=== PATIENT | female | born 1950 | race American Indian/Alaskan Native ===

== ENCOUNTER 2017-04-18 09:12 | Emergency (ER) | payer MEDICARE ==
--- NOTE | 2017-04-18 10:16 | Emergency Department Report ---
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 As per farm or ranch animal caretaker and daughter at bedside, while they were moving the patient, the tube got caught and dislodged. Pt had a 22Fr feeding tube in place. G tube was first placed approximately 6 years ago, she has a mature tract. Otherwise no other complaints. Severity scale (0 -10): 0 - Related Data Home Medications Medication Instructions Recorded Confirmed Last Taken Carvedilol [Coreg] 25 mg FEEDTUBE BID 11/15/13 06/09/16 09/08/14 Insulin Detemir [Levemir Flexpen] 5 units SQ QPM 11/15/13 06/09/16 09/08/14 Levothyroxine [Synthroid] 25 mcg FEEDTUBE DAILY 11/15/13 06/09/16 09/08/14 Lisinopril [Zestril TAB] 20 mg FEEDTUBE DAILY 11/15/13 06/09/16 09/08/14 Mirtazapine [Remeron] 15 mg FEEDTUBE QPM 11/15/13 06/09/16 09/08/14 amLODIPine [Norvasc] 10 mg FEEDTUBE DAILY 11/15/13 06/09/16 09/08/14 Ferrous Sulfate [Ferrous Sulfate 7.5 ml FEEDTUBE BID 09/09/14 06/09/16 09/08/14 Oral Liq 220 Mg/5 Ml] Allergies Allergy/AdvReac Type Severity Reaction Status Date / Time enoxaparin sodium AdvReac Unknown Verified 11/12/15 17:01 [From Lovenox] ED Review of Systems ROS: Stated complaint: FEEDING TUBE DISLODGED Other details as noted in HPI Comment: All other systems reviewed and negative ED Past Medical Hx - Past Medical History Hx Hypertension: Yes Hx CVA: Yes (2010 WITH RIGHT SIDED DEFICITS) Hx Heart Attack/AMI: (CHF) Hx Congestive Heart Failure: Yes Hx Diabetes: Yes Hx Deep Vein Thrombosis: Yes Hx Arthritis: Yes Hx HIV: No Additional medical history: HYPOTHYROIDSIM, GI bleed - Surgical History Additional Surgical History: Partial colectomy, Rectal Surgery. G-tube - Social History Smoking Status: Never Smoker Substance Use Type: Alcohol - Medications Home Medications: Home Medications Medication Instructions Recorded Confirmed Last Taken Type Carvedilol [Coreg] 25 mg FEEDTUBE BID 11/15/13 06/09/16 09/08/14 History Insulin Detemir [Levemir Flexpen] 5 units SQ QPM 11/15/13 06/09/16 09/08/14 History Levothyroxine [Synthroid] 25 mcg FEEDTUBE DAILY 11/15/13 06/09/16 09/08/14 History Lisinopril [Zestril TAB] 20 mg FEEDTUBE DAILY 11/15/13 06/09/16 09/08/14 History Mirtazapine [Remeron] 15 mg FEEDTUBE QPM 11/15/13 06/09/16 09/08/14 History amLODIPine [Norvasc] 10 mg FEEDTUBE DAILY 11/15/13 06/09/16 09/08/14 History Ferrous Sulfate [Ferrous Sulfate 7.5 ml FEEDTUBE BID 09/09/14 06/09/16 09/08/14 History Oral Liq 220 Mg/5 Ml] ED Physical Exam - General Limitations: Physical Limitation General appearance: alert, in no apparent distress - Head Head exam: Present: atraumatic, normocephalic - Eye Eye exam: Present: normal appearance - ENT ENT exam: Present: mucous membranes moist - Neck Neck exam: Present: normal inspection - Respiratory Respiratory exam: Present: normal lung sounds bilaterally. Absent: respiratory distress - Cardiovascular Cardiovascular Exam: Present: regular rate, normal rhythm. Absent: systolic murmur, diastolic murmur, rubs, gallop - GI/Abdominal GI/Abdominal exam: Present: soft, normal bowel sounds, other (G tube stoma in middle of abdomen, open tract, no surrounding cellulitis). Absent: distended, tenderness, guarding, rebound, rigid - Extremities Exam Extremities exam: Present: normal inspection. Absent: pedal edema, joint swelling - Back Exam Back exam: Present: normal inspection - Neurological Exam Neurological exam: Present: alert, other (R sided hemiparesis, nonverbal. Pt is at her baseline) - Psychiatric Psychiatric exam: Present: normal affect, normal mood - Skin Skin exam: Present: warm, dry, intact, normal color. Absent: rash ED Course Vital Signs 04/18/17 04/18/17 09:31 10:06 Pulse Rate 62 Respiratory 14 16 Rate Blood Pressure 168/97 [Left] O2 Sat by Pulse 96 99 Oximetry ED Medical Decision Making - Radiology Data Radiology results: report reviewed KUB: G tube in satisfactory position - Medical Decision Making 24 FR Gtube placed with ease into established stoma, 10cc's of NS placed into balloon Critical care attestation.: If time is entered above; I have spent that time in minutes in the direct care of this critically ill patient, excluding procedure time. ED Disposition Clinical Impression: Gastrojejunostomy tube dislodgement Disposition: DISCHARGED TO HOME OR SELFCARE Is pt being admited?: No Condition: Stable Instructions: How to Use and Care for Your PEG Tube (ED) Referrals: JAMIA GLEZ MD [Primary Care Provider] - 3-5 Days
--- NOTE | 2017-04-18 11:08 | XRay Report ---
X-RAY G-TUBE STUDY: 04/18/17 10:43 CLINICAL: Assess position of the G-tube. COMPARISON: None. FINDINGS: A small volume of Gastroview was injected through the G-tube. Contrast is identified in the . No extravasation. IMPRESSION: Satisfactory position of the G-tube.
[2017-04-18 15:22] VITALS: BP 130/78
== END 2017-04-18 12:50 | disposition home or self-care (01) ==
LOC: ED 09:12
DX: Z43.1 Encounter for attention to gastrostomy (principal)
CPT/HCPCS: 74000; 99283; Q9963

== ENCOUNTER 2017-11-15 19:42 | Emergency (ER) | payer MEDICARE ==
--- NOTE | 2017-11-15 21:38 | Emergency Department Report ---
HPI - General Chief Complaint: Tube Replacement Time Seen by Provider: 11/15/17 20:52 - HPI HPI: Room 21 The patient is a 67-year-old female presenting with a chief complaint G-tube removal. Patient has a history of a G-tube and family states was pulled out approximately 17:00 today. Family presents to have G-tube replaced. 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 Location: Abdomen Duration: Constant since 17:00 Quality: [See above] Severity: [See above] Modifying factors: [see above] Context: [see above] Mode of transportation: [not driving] ED Past Medical Hx - Past Medical History Previous Medical History?: Yes Hx Hypertension: Yes Hx CVA: Yes (2011 WITH RIGHT SIDED DEFICITS) Hx Heart Attack/AMI: (CHF) Hx Congestive Heart Failure: Yes Hx Diabetes: Yes Hx Deep Vein Thrombosis: Yes Hx Arthritis: Yes Hx HIV: No Additional medical history: HYPOTHYROIDSIM, GI bleed - Surgical History Past Surgical History?: Yes Additional Surgical History: Partial colectomy (family does not know the indication), Rectal Surgery. G-tube - Social History Smoking Status: Never Smoker Substance Use Type: None - Medications Home Medications: Home Medications Medication Instructions Recorded Confirmed Last Taken Type Carvedilol [Coreg] 25 mg FEEDTUBE BID 11/15/13 06/09/16 09/08/14 History Insulin Detemir [Levemir Flexpen] 5 units SQ QPM 11/15/13 06/09/16 09/08/14 History Levothyroxine [Synthroid] 25 mcg FEEDTUBE DAILY 11/15/13 06/09/16 09/08/14 History Lisinopril [Zestril TAB] 20 mg FEEDTUBE DAILY 11/15/13 06/09/16 09/08/14 History Mirtazapine [Remeron] 15 mg FEEDTUBE QPM 11/15/13 06/09/16 09/08/14 History amLODIPine [Norvasc] 10 mg FEEDTUBE DAILY 11/15/13 06/09/16 09/08/14 History Ferrous Sulfate [Ferrous Sulfate 7.5 ml FEEDTUBE BID 09/09/14 06/09/16 09/08/14 History Oral Liq 220 Mg/5 Ml] ED Review of Systems ROS: Stated complaint: G-TUBE Other details as noted in HPI Comment: Unobtainable due to pts medical conditions Physical Exam - Physical Exam Vital Signs: Vital Signs 11/15/17 19:50 Temperature 98.3 F Pulse Rate 99 H Respiratory 20 Rate Blood Pressure 146/82 [Left] O2 Sat by Pulse 96 Oximetry Physical Exam: GENERAL: The patient is well-developed well-nourished female lying on stretcher not appearing to be in acute distress. [] HEENT: Normocephalic. Atraumatic. Extraocular motions are intact. Patient has moist mucous membranes. NECK: Trachea midline CHEST/LUNGS: Clear to auscultation. There is no respiratory distress noted. HEART/CARDIOVASCULAR: Regular. There is no tachycardia. There is no gallop rub or murmur. ABDOMEN: Abdomen is soft, nontender. Patient has normal bowel sounds. There is no abdominal distention. G-tube stoma present SKIN: G-tube stoma present NEURO: The patient is awake and alert. The patient is cooperative. Patient is aphasic from previous CVA MUSCULOSKELETAL: There is no evidence of acute injury. ED Course Vital Signs 11/15/17 19:50 Temperature 98.3 F Pulse Rate 99 H Respiratory 20 Rate Blood Pressure 146/82 [Left] O2 Sat by Pulse 96 Oximetry - Feeding Tube Replacement Reason for Replacement: pt. removed/pulled out Initial Tube Inserted: greater than 4 weeks Type of Tube: gastrostomy Use of Tube: medications and feeding Insertion Site Prior to Procedure: clean Tube Used for Reinsertion: other (22 Bruneian G-tube) Bruneian Tube Size (F): 22 Balloon Size (mls): 10 Verification of Placement: gastrograffin injection Patient Tolerated Procedure: well Complications: other (initially attempted to replace G-tube with 24 Bruneian however it would not pass. Subsequently a second attempt was made using a 22 Bruneian G-tube and was successful) ED Medical Decision Making - Radiology Data Radiology results: image reviewed (G-tube x-ray ) interpreted by me: G-tube [id number] seen in bowel lumen - Differential Diagnosis G-tube replacement Critical care attestation.: If time is entered above; I have spent that time in minutes in the direct care of this critically ill patient, excluding procedure time. ED Disposition Clinical Impression: Dislodged gastrostomy tube Disposition: DC- TO HOME OR SELFCARE Is pt being admited?: No Does the pt Need Aspirin: No Condition: Stable Instructions: Tube Feeding (ED) Additional Instructions: Return to the emergency department immediately should you develop worsening symptoms, fever, inability to tolerate food or liquid or any other concerns. Referrals: PRIMARY CARE, [Primary Care Provider] - 3-5 Days Time of Disposition: 21:43
[2017-11-15 22:04] VITALS: BP 143/85
--- NOTE | 2017-11-15 22:43 | XRay Report ---
FINAL REPORT PROCEDURE: XR G-TUBE STUDY TECHNIQUE: Abdominal x-rays performed with AP abdominal view pre and post G-tube contrast injection Two images submitted HISTORY: G-tube replacement COMPARISON: 06/09/2016 FINDINGS: Pre enteric tube injection study demonstrates dilated loops of large bowel. Large bore enteric tube in the right upper quadrant area antral region of stomach. Large fibroid uterus suspected. Metallic clips in the mid abdomen right lower pelvis Post injection study demonstrates contrast within portions of duodenum and jejunum. No extravasation suspected Degenerative changes of the hips which appear mild rotated on the right which could be pathologic or positional. Severe degenerative changes of the left hip with possible prior healed fracturing or deformation. IMPRESSION: Enteric tube contrast fills duodenum and jejunum No extravasation of contrast post tube injection
== END 2017-11-16 01:06 | disposition home or self-care (01) ==
LOC: ED 19:42
DX: K94.29 Other complications of gastrostomy (principal); Z86.73 Personal history of transient ischemic attack (TIA), and cerebral infarction without residual deficits; I50.9 Heart failure, unspecified; I82.401 Acute embolism and thrombosis of unspecified deep veins of right lower extremity; M19.90 Unspecified osteoarthritis, unspecified site; Z79.4 Long term (current) use of insulin; I10 Essential (primary) hypertension; E03.9 Hypothyroidism, unspecified; Z88.8 Allergy status to other drugs, medicaments and biological substances
CPT/HCPCS: 74000; Q9963

== ENCOUNTER 2018-07-03 11:54 | Emergency (ER) | payer MEDICARE ==
--- NOTE | 2018-07-03 12:38 | Emergency Department Report ---
ED Medical Clearance HPI - General Chief complaint: Medical Clearance Stated complaint: PEG Time Seen by Provider: 07/03/18 12:37 Source: family, EMS Mode of arrival: Stretcher - History of Present Illness Initial comments: Patient feeding tube accidentally fell out at home 2 hours ago and she was brought to the emergency room by her daughters to have it replaced. Patient has no medical complaints. -: hour(s) (2), This morning Reason for Medical Clearance: other (Feeding tube replacement) Place: home Alledged Intoxication: No Compliant with Home Medications: Yes Traumatic Symptoms: denies traumatic injury Associated Symptoms: denies: chest pain, shortness of breath Treatments Prior to Arrival: none Home medications: Home Medications Medication Instructions Recorded Confirmed Last Taken Carvedilol [Coreg] 25 mg FEEDTUBE BID 11/15/13 06/09/16 09/08/14 Insulin Detemir [Levemir Flexpen] 5 units SQ QPM 11/15/13 06/09/16 09/08/14 Levothyroxine [Synthroid] 25 mcg FEEDTUBE DAILY 11/15/13 06/09/16 09/08/14 Lisinopril [Zestril TAB] 20 mg FEEDTUBE DAILY 11/15/13 06/09/16 09/08/14 Mirtazapine [Remeron] 15 mg FEEDTUBE QPM 11/15/13 06/09/16 09/08/14 amLODIPine [Norvasc] 10 mg FEEDTUBE DAILY 11/15/13 06/09/16 09/08/14 Ferrous Sulfate [Ferrous Sulfate 7.5 ml FEEDTUBE BID 09/09/14 06/09/16 09/08/14 Oral Liq 220 Mg/5 Ml] Allergies/Adverse reactions: Allergies Allergy/AdvReac Type Severity Reaction Status Date / Time enoxaparin sodium AdvReac Unknown Verified 11/12/15 17:01 [From Lovenox] ED Review of Systems ROS: Stated complaint: PEG Other details as noted in HPI Comment: Unobtainable due to pts medical conditions (Patient is nonverbal due to old stroke.) ED Past Medical Hx - Past Medical History Hx Hypertension: Yes Hx CVA: Yes (2010 WITH RIGHT SIDED DEFICITS) Hx Heart Attack/AMI: (CHF) Hx Congestive Heart Failure: Yes Hx Diabetes: Yes Hx Deep Vein Thrombosis: Yes Hx Arthritis: Yes Hx HIV: No Additional medical history: HYPOTHYROIDSIM, GI bleed - Surgical History Additional Surgical History: Partial colectomy (family does not know the indication), Rectal Surgery. G-tube - Social History Smoking Status: Unknown if ever smoked - Medications Home Medications: Home Medications Medication Instructions Recorded Confirmed Last Taken Type Carvedilol [Coreg] 25 mg FEEDTUBE BID 11/15/13 06/09/16 09/08/14 History Insulin Detemir [Levemir Flexpen] 5 units SQ QPM 11/15/13 06/09/16 09/08/14 History Levothyroxine [Synthroid] 25 mcg FEEDTUBE DAILY 11/15/13 06/09/16 09/08/14 History Lisinopril [Zestril TAB] 20 mg FEEDTUBE DAILY 11/15/13 06/09/16 09/08/14 History Mirtazapine [Remeron] 15 mg FEEDTUBE QPM 11/15/13 06/09/16 09/08/14 History amLODIPine [Norvasc] 10 mg FEEDTUBE DAILY 11/15/13 06/09/16 09/08/14 History Ferrous Sulfate [Ferrous Sulfate 7.5 ml FEEDTUBE BID 09/09/14 06/09/16 09/08/14 History Oral Liq 220 Mg/5 Ml] ED Physical Exam - General Limitations: Physical Limitation General appearance: alert, in no apparent distress - Head Head exam: Present: atraumatic, normocephalic, normal inspection - Eye Eye exam: Present: normal appearance, PERRL, EOMI Pupils: Present: normal accommodation - ENT ENT exam: Present: normal exam, normal orophraynx, mucous membranes moist - Neck Neck exam: Present: normal inspection, full ROM - Respiratory Respiratory exam: Present: normal lung sounds bilaterally - Cardiovascular Cardiovascular Exam: Present: regular rate, normal rhythm, normal heart sounds - GI/Abdominal GI/Abdominal exam: Present: soft, normal bowel sounds, other (PEG tube site is unremarkable.). Absent: distended, tenderness, guarding, rebound - Extremities Exam Extremities exam: Present: normal inspection, full ROM, normal capillary refill - Back Exam Back exam: Present: normal inspection, full ROM - Neurological Exam Neurological exam: Present: alert - Psychiatric Psychiatric exam: Present: normal affect, normal mood - Skin Skin exam: Present: warm, dry, intact, normal color, rash ED Course Vital Signs 07/03/18 07/03/18 12:16 12:18 Temperature 98.6 F Pulse Rate 61 Respiratory 16 17 Rate Blood Pressure 154/90 [Left] O2 Sat by Pulse 96 96 Oximetry ED Medical Decision Making - Radiology Data Radiology results: image reviewed interpreted by me: PEG Tube replacement. - Feeding Tube Replacement Reason for Replacement: fell out Initial Tube Inserted: less than 4 weeks Type of Tube: gastrostomy Use of Tube: medications and feeding Insertion Site Prior to Procedure: clean Tube Used for Reinsertion: other (PEG tube) Slovak Tube Size (F): 22 Verification of Placement: KUB, gastrograffin injection Tube Secured by: tape/dressing Patient Tolerated Procedure: well, no complications ED Disposition Clinical Impression: Malfunction of percutaneous endoscopic gastrostomy (PEG) tube Disposition: TO HOME OR SELFCARE Is pt being admited?: No Does the pt Need Aspirin: No Condition: Stable Instructions: Percutaneous Endoscopic Gastrostomy Insertion (GEN) Additional Instructions: Follow up with your primary doctor tomorrow morning. Return to the ED if your condition worsens. Referrals: PRIMARY CARE [Primary Care Provider] - 3-5 Days Time of Disposition: 14:45
--- NOTE | 2018-07-03 14:39 | XRay Report ---
FINAL REPORT EXAM: XR G-TUBE STUDY HISTORY: Evaluate PEG tube placement. COMPARISON: Gastrostomy tube study performed on 11/15/2017 TECHNIQUE: Two views of the abdomen FINDINGS: The gastrostomy tube is with its tip in the stomach. Instilled contrast flows freely into the lumen of the stomach and duodenum. There are scattered surgical clips. There is a nonobstructive bowel gas pattern. IMPRESSION: Gastrostomy tube with tip in the stomach
[2018-07-03 15:31] VITALS: BP 158/79
== END 2018-07-03 16:10 | disposition home or self-care (01) ==
LOC: ED 11:54
DX: K94.23 Gastrostomy malfunction (principal); I11.0 Hypertensive heart disease with heart failure; I50.9 Heart failure, unspecified; E11.9 Type 2 diabetes mellitus without complications; M19.90 Unspecified osteoarthritis, unspecified site; E03.9 Hypothyroidism, unspecified; Z86.718 Personal history of other venous thrombosis and embolism; Z86.73 Personal history of transient ischemic attack (TIA), and cerebral infarction without residual deficits; Z79.4 Long term (current) use of insulin; Z88.8 Allergy status to other drugs, medicaments and biological substances
CPT/HCPCS: 43760; 74018; 99283; Q9963

== ENCOUNTER 2019-02-10 15:04 | Emergency (ER) | payer MEDICARE ==
--- NOTE | 2019-02-10 16:46 | Emergency Department Report ---
HPI - General Chief Complaint: Medical Clearance Time Seen by Provider: 02/10/19 16:26 - HPI HPI: Room 25 The patient is 68-year-old female presented with a chief of accidentally pulled out G-tube. Family states approximately 20-30 minutes prior to arrival the patient was witnessed pulling out her feeding tube. There are no other complaints Location: Abdomen Duration: [See above] Quality: [See above] Severity: [See above] Modifying factors: [see above] Context: [see above] Mode of transportation: [not driving] ED Past Medical Hx - Past Medical History Hx Hypertension: Yes Hx CVA: Yes (2010 WITH RIGHT SIDED DEFICITS) Hx Heart Attack/AMI: (CHF) Hx Congestive Heart Failure: Yes Hx Diabetes: Yes Hx Deep Vein Thrombosis: Yes Hx Arthritis: Yes Hx HIV: No Additional medical history: HYPOTHYROIDSIM, GI bleed - Surgical History Additional Surgical History: Partial colectomy (family does not know the indication), Rectal Surgery. G-tube - Family History Family history: no significant - Social History Smoking Status: Never Smoker Substance Use Type: None - Medications Home Medications: Home Medications Medication Instructions Recorded Confirmed Last Taken Type Carvedilol [Coreg] 25 mg FEEDTUBE BID 11/15/13 06/09/16 09/08/14 History Insulin Detemir [Levemir Flexpen] 5 units SQ QPM 11/15/13 06/09/16 09/08/14 History Levothyroxine [Synthroid] 25 mcg FEEDTUBE DAILY 11/15/13 06/09/16 09/08/14 History Lisinopril [Zestril TAB] 20 mg FEEDTUBE DAILY 11/15/13 06/09/16 09/08/14 History Mirtazapine [Remeron] 15 mg FEEDTUBE QPM 11/15/13 06/09/16 09/08/14 History amLODIPine [Norvasc] 10 mg FEEDTUBE DAILY 11/15/13 06/09/16 09/08/14 History Ferrous Sulfate [Ferrous Sulfate 7.5 ml FEEDTUBE BID 09/09/14 06/09/16 09/08/14 History Oral Liq 220 Mg/5 Ml] ED Review of Systems ROS: Stated complaint: G TUBE CAME OUT Other details as noted in HPI Comment: Unobtainable due to pts medical conditions Physical Exam - Physical Exam Vital Signs: Vital Signs 02/10/19 15:26 Temperature 98.6 F Pulse Rate 86 Respiratory 15 Rate Blood Pressure 106/49 [Right] O2 Sat by Pulse 97 Oximetry Physical Exam: GENERAL: The patient is well-developed well-nourished female lying on stretcher not appearing to be in acute distress. [] HEENT: Normocephalic. Atraumatic. Extraocular motions are intact. Patient has moist mucous membranes. NECK: Supple. Trachea midline CHEST/LUNGS: Clear to auscultation. There is no respiratory distress noted. HEART/CARDIOVASCULAR: Regular. There is no tachycardia. There is no gallop rub or murmur. ABDOMEN: Abdomen is soft, nontender. Patient has normal bowel sounds. There is no abdominal distention. G-tube stoma in place SKIN: There is no rash. There is no edema. There is no diaphoresis. NEURO: The patient is awake and alert. The patient is cooperative. MUSCULOSKELETAL: There is no evidence of acute injury. ED Course Vital Signs 02/10/19 15:26 Temperature 98.6 F Pulse Rate 86 Respiratory 15 Rate Blood Pressure 106/49 [Right] O2 Sat by Pulse 97 Oximetry - Feeding Tube Replacement Reason for Replacement: pt. removed/pulled out Initial Tube Inserted: greater than 4 weeks Use of Tube: medications and feeding Insertion Site Prior to Procedure: clean Tube Used for Reinsertion: other (22 Amharic feeding tube) Amharic Tube Size (F): 22 Balloon Size (mls): 10 Verification of Placement: gastrograffin injection Tube Secured by: tape/dressing ED Medical Decision Making - Radiology Data Radiology results: image reviewed (G-tube study) interpreted by me: G-tube study-contrast highlights the bowel lumen. G-tube in place - Differential Diagnosis feeding tube replacement Critical care attestation.: If time is entered above; I have spent that time in minutes in the direct care of this critically ill patient, excluding procedure time. ED Disposition Clinical Impression: Encounter for feeding tube placement Disposition: -01 TO HOME OR SELFCARE Is pt being admited?: No Does the pt Need Aspirin: No Condition: Stable Instructions: Tube Feeding (ED) Additional Instructions: Return to the emergency department immediately should you develop worsening symptoms, fever, inability to tolerate food or liquid or any other concerns. Referrals: JAMIA GLEZ MD [Primary Care Provider] - 3-5 Days Time of Disposition: 17:19
--- NOTE | 2019-02-10 18:37 | XRay Report ---
PROCEDURE: XR G-TUBE STUDY TECHNIQUE: Frontal views of the abdomen HISTORY: replaced G-tube COMPARISONS: X-ray abdomen dated July 03, 2018 FINDINGS: GI contrast is demonstrated to exit the percutaneous gastrostomy tube with contrast in what appears t o be the stomach and in the small bowel. There is no evidence of extravasation of GI contrast. The bowel gas pattern is nonspecific with distended loops of bowel in the abdomen and pelvis. IMPRESSION: 1. Percutaneous gastrostomy tube appears to be in satisfactory position. This document is electronically signed by Ketty Benítez MD., February 10 2019 06:35:15 PM ET
[2019-02-10 19:49] VITALS: BP 130/79
== END 2019-02-10 20:15 | disposition home or self-care (01) ==
LOC: ED 15:04
DX: Z46.59 Encounter for fitting and adjustment of other gastrointestinal appliance and device (principal); I11.0 Hypertensive heart disease with heart failure; E11.9 Type 2 diabetes mellitus without complications; M19.90 Unspecified osteoarthritis, unspecified site; E03.9 Hypothyroidism, unspecified; Z90.49 Acquired absence of other specified parts of digestive tract; Z79.4 Long term (current) use of insulin; Z86.718 Personal history of other venous thrombosis and embolism
CPT/HCPCS: 43762; 74018; 99283; Q9967

== ENCOUNTER 2019-06-11 19:18 | Emergency (ER) | payer MEDICARE ==
--- NOTE | 2019-06-11 21:27 | XRay Report ---
Abdomen AP supine 2 views 2037 INDICATION: PEG tube position verification Water-soluble contrast was administered on the floor through the PEG tube. The tube balloon is positi oned in the area of the distal stomach. Contrast is seen within the stomach with no obvious extravasa tion. Mild colonic distention is seen with gas. I do not see an obvious obstructive pattern. A large calcif ied uterine leiomyoma is seen. Multiple abdominal and pelvic surgical changes are seen. Signer Name: Francisco J Barajas MD Signed: 06/11/2019 9:23 PM Workstation Name: [id number]
--- NOTE | 2019-06-11 22:07 | Emergency Department Report ---
ED General Adult HPI - General Chief complaint: Abdominal Pain Stated complaint: PULLED OUT NG TUBE Time Seen by Provider: 06/11/19 19:43 Source: patient, EMS Mode of arrival: Stretcher Limitations: Physical Limitation - History of Present Illness Initial comments: Patient is a 68-year-old female who is take to dependent who is here status post accidentally pulling out her PEG tube. Patient's has some mild diarrhea for the last 2 days and some abdominal crampiness and pulled her PEG tube out herself. Patient is aphasic secondary to stroke. Patient's daughter states the PEG tube is been out for approximately 2 hours. - Related Data Home Medications Medication Instructions Recorded Confirmed Last Taken Carvedilol [Coreg] 25 mg FEEDTUBE BID 11/15/13 06/09/16 09/08/14 Insulin Detemir [Levemir Flexpen] 5 units SQ QPM 11/15/13 06/09/16 09/08/14 Levothyroxine [Synthroid] 25 mcg FEEDTUBE DAILY 11/15/13 06/09/16 09/08/14 Lisinopril [Zestril TAB] 20 mg FEEDTUBE DAILY 11/15/13 06/09/16 09/08/14 Mirtazapine [Remeron 15mg TAB] 15 mg FEEDTUBE QPM 11/15/13 06/09/16 09/08/14 amLODIPine [Norvasc] 10 mg FEEDTUBE DAILY 11/15/13 06/09/16 09/08/14 Ferrous Sulfate [Ferrous Sulfate 7.5 ml FEEDTUBE BID 09/09/14 06/09/16 09/08/14 Oral Liq 220 Mg/5 Ml] Allergies Allergy/AdvReac Type Severity Reaction Status Date / Time enoxaparin sodium AdvReac Unknown Verified 11/12/15 17:01 [From Lovenox] ED Review of Systems ROS: Stated complaint: PULLED OUT NG TUBE Other details as noted in HPI Comment: All other systems reviewed and negative ED Past Medical Hx - Past Medical History Hx Hypertension: Yes Hx CVA: Yes (2010 WITH RIGHT SIDED DEFICITS) Hx Heart Attack/AMI: (CHF) Hx Congestive Heart Failure: Yes Hx Diabetes: Yes Hx Deep Vein Thrombosis: Yes Hx Arthritis: Yes Hx HIV: No Additional medical history: HYPOTHYROIDSIM, GI bleed - Surgical History Additional Surgical History: Partial colectomy (family does not know the indication), Rectal Surgery. G-tube - Social History Smoking Status: Never Smoker Substance Use Type: None - Medications Home Medications: Home Medications Medication Instructions Recorded Confirmed Last Taken Type Carvedilol [Coreg] 25 mg FEEDTUBE BID 11/15/13 06/09/16 09/08/14 History Insulin Detemir [Levemir Flexpen] 5 units SQ QPM 11/15/13 06/09/16 09/08/14 History Levothyroxine [Synthroid] 25 mcg FEEDTUBE DAILY 11/15/13 06/09/16 09/08/14 History Lisinopril [Zestril TAB] 20 mg FEEDTUBE DAILY 11/15/13 06/09/16 09/08/14 History Mirtazapine [Remeron 15mg TAB] 15 mg FEEDTUBE QPM 11/15/13 06/09/16 09/08/14 History amLODIPine [Norvasc] 10 mg FEEDTUBE DAILY 11/15/13 06/09/16 09/08/14 History Ferrous Sulfate [Ferrous Sulfate 7.5 ml FEEDTUBE BID 09/09/14 06/09/16 09/08/14 History Oral Liq 220 Mg/5 Ml] ED Physical Exam - General Limitations: Language Barrier, Physical Limitation General appearance: alert, in no apparent distress - Head Head exam: Present: atraumatic, normocephalic - Eye Eye exam: Present: normal appearance - ENT ENT exam: Present: mucous membranes moist - Neck Neck exam: Present: normal inspection - Respiratory Respiratory exam: Present: normal lung sounds bilaterally. Absent: respiratory distress, wheezes, rales, rhonchi - Cardiovascular Cardiovascular Exam: Present: regular rate, normal rhythm. Absent: systolic murmur, diastolic murmur, rubs, gallop - GI/Abdominal GI/Abdominal exam: Present: soft, normal bowel sounds, other (g tube ostomy present centrally). Absent: distended, tenderness, guarding, rebound, rigid - Extremities Exam Extremities exam: Present: normal inspection - Back Exam Back exam: Present: normal inspection - Neurological Exam Neurological exam: Present: alert, oriented X3 - Psychiatric Psychiatric exam: Present: normal affect, normal mood - Skin Skin exam: Present: warm, dry, intact, normal color. Absent: rash ED Course Vital Signs 06/11/19 06/11/19 06/11/19 19:23 19:34 20:41 Temperature 98.8 F 98.3 F Pulse Rate 94 H 93 H 94 H Respiratory 18 22 17 Rate Blood Pressure 148/83 Blood Pressure 130/77 129/63 [Right] O2 Sat by Pulse 96 97 97 Oximetry - Procedure Description Procedures done: Patient has a history of using a 22 Citizen [place] PEG tube. She attempted to place a 22 initially and was unsuccessful was feeling great deal of resistance. Was able to get some clear gastric contents out of the ostomy hole however. Used a 16 [place] tube to open the whole slightly was able to then take this out and then placed a 22 [place]. There is very minimal bleeding during the replacement. ED Medical Decision Making - Medical Decision Making [facility] [address] [place] [address] XRay Report Signed Patient: WINIFRED LEBLANC MR #: [id number] : 1950 Acct:[id number] Age/Sex: 68 / F ADM Date: 06/11/19 Loc: ED Attending Dr: Ordering Physician: EDEN ROMERO MD Date of Service: 06/11/19 Procedure(s): XR g-tube study Accession Number(s): [id number] cc: EDEN ROMERO MD Fluoro Time In Minutes: Abdomen AP supine 2 views 2037 INDICATION: PEG tube position verification Water-soluble contrast was administered on the floor through the PEG tube. The tube balloon is positioned in the area of the distal stomach. Contrast is seen within the stomach with no obvious extravasation. Mild colonic distention is seen with gas. I do not see an obvious obstructive pattern. A large calcified uterine leiomyoma is seen. Multiple abdominal and pelvic surgical changes are seen. Signer Name: Francisco J Barajas MD Signed: 06/11/2019 9:23 PM Workstation Name: [id number] Transcribed By: GJ Dictated By: Francisco J Barajas MD Electronically Authenticated By: Francisco J Barajas MD Signed Date/Time: 06/11/192122 DD/ 20 TD/TT: Critical care attestation.: If time is entered above; I have spent that time in minutes in the direct care of this critically ill patient, excluding procedure time. ED Disposition Clinical Impression: PEG tube malfunction Disposition: DC-01 TO HOME OR SELFCARE Is pt being admited?: No Does the pt Need Aspirin: No Condition: Stable Instructions: Abdominal Pain (ED) Referrals: PRIMARY CARE, [Primary Care Provider] - 3-5 Days Time of Disposition: 22:12
[2019-06-11 22:22] VITALS: BP 125/71
== END 2019-06-11 23:02 | disposition home or self-care (01) ==
LOC: ED 19:18
DX: K94.23 Gastrostomy malfunction (principal); I11.0 Hypertensive heart disease with heart failure; I50.9 Heart failure, unspecified; E11.9 Type 2 diabetes mellitus without complications; M19.90 Unspecified osteoarthritis, unspecified site; E03.9 Hypothyroidism, unspecified; Z90.49 Acquired absence of other specified parts of digestive tract; Z86.718 Personal history of other venous thrombosis and embolism; Z98.890 Other specified postprocedural states; Z79.4 Long term (current) use of insulin; Z79.899 Other long term (current) drug therapy; Z88.8 Allergy status to other drugs, medicaments and biological substances
CPT/HCPCS: 43762; 74018; 99283; Q9967

== ENCOUNTER 2020-01-24 10:03 | Emergency (ER) | payer MEDICARE ==
--- NOTE | 2020-01-24 10:33 | Emergency Department Report ---
ED General Adult HPI - General Stated complaint: FEEDING TUBE REPLACEMENT Time Seen by Provider: 01/24/20 10:17 Source: EMS Mode of arrival: Stretcher - History of Present Illness Initial comments: 69-year-old female with history of CVA in the past presents to ED for dislodged feeding tube. EMS states home health nurse reports tube has been out for approximately 1 hour. However, patient reports it has been approximately 5 hours. -: This morning Location: abdomen Consistency: constant Improves with: none Worsens with: none Associated Symptoms: denies other symptoms Treatments Prior to Arrival: none - Related Data Home Medications Medication Instructions Recorded Confirmed Last Taken Insulin Detemir [Levemir Flexpen] 5 units SQ QPM 11/15/13 06/09/16 09/08/14 Levothyroxine [Synthroid] 25 mcg FEEDTUBE DAILY 11/15/13 06/09/16 09/08/14 Mirtazapine [Remeron 15mg TAB] 15 mg FEEDTUBE QPM 11/15/13 06/09/16 09/08/14 amLODIPine 10 mg FEEDTUBE DAILY 11/15/13 06/09/16 09/08/14 carvediloL [Coreg] 25 mg FEEDTUBE BID 11/15/13 06/09/16 09/08/14 lisinopriL [Zestril TAB] 20 mg FEEDTUBE DAILY 11/15/13 06/09/16 09/08/14 Ferrous Sulfate [Ferrous Sulfate 7.5 ml FEEDTUBE BID 09/09/14 06/09/16 09/08/14 Oral Liq 220 Mg/5 Ml] Allergies Allergy/AdvReac Type Severity Reaction Status Date / Time enoxaparin sodium AdvReac Unknown Verified 11/12/15 17:01 [From Lovenox] ED Review of Systems ROS: Stated complaint: FEEDING TUBE REPLACEMENT Other details as noted in HPI Comment: All other systems reviewed and negative Gastrointestinal: denies: abdominal pain ED Past Medical Hx - Past Medical History Hx Hypertension: Yes Hx CVA: Yes (2010 WITH RIGHT SIDED DEFICITS) Hx Heart Attack/AMI: (CHF) Hx Congestive Heart Failure: Yes Hx Diabetes: Yes Hx Deep Vein Thrombosis: Yes Hx Arthritis: Yes Hx HIV: No Additional medical history: HYPOTHYROIDSIM, GI bleed - Surgical History Additional Surgical History: Partial colectomy (family does not know the indication), Rectal Surgery. G-tube - Social History Smoking Status: Never Smoker Substance Use Type: None - Medications Home Medications: Home Medications Medication Instructions Recorded Confirmed Last Taken Type Insulin Detemir [Levemir Flexpen] 5 units SQ QPM 11/15/13 06/09/16 09/08/14 History Levothyroxine [Synthroid] 25 mcg FEEDTUBE DAILY 11/15/13 06/09/16 09/08/14 History Mirtazapine [Remeron 15mg TAB] 15 mg FEEDTUBE QPM 11/15/13 06/09/16 09/08/14 History amLODIPine 10 mg FEEDTUBE DAILY 11/15/13 06/09/16 09/08/14 History carvediloL [Coreg] 25 mg FEEDTUBE BID 11/15/13 06/09/16 09/08/14 History lisinopriL [Zestril TAB] 20 mg FEEDTUBE DAILY 11/15/13 06/09/16 09/08/14 History Ferrous Sulfate [Ferrous Sulfate 7.5 ml FEEDTUBE BID 09/09/14 06/09/16 09/08/14 History Oral Liq 220 Mg/5 Ml] ED Physical Exam - General General appearance: alert, in no apparent distress - Head Head exam: Present: atraumatic, normocephalic - Eye Eye exam: Present: normal appearance, EOMI - ENT ENT exam: Present: mucous membranes moist - Neck Neck exam: Present: normal inspection - Respiratory Respiratory exam: Present: normal lung sounds bilaterally. Absent: respiratory distress - Cardiovascular Cardiovascular Exam: Present: regular rate, normal rhythm - GI/Abdominal GI/Abdominal exam: Present: soft, other (gastrostomy site in LUQ, appears clean). Absent: distended, tenderness - Neurological Exam Neurological exam: Present: alert, other (nonverbal, but able to communicate, at baseline per granddaughter at bedside) - Psychiatric Psychiatric exam: Present: normal affect, normal mood - Skin Skin exam: Present: warm, dry, intact, normal color ED Course Vital Signs 01/24/20 01/24/20 01/24/20 10:30 10:38 10:45 Temperature 98.2 F Pulse Rate 85 85 87 Respiratory 20 21 18 Rate Blood Pressure 139/79 130/76 Blood Pressure 130/73 [Right] O2 Sat by Pulse 96 93 Oximetry - Feeding Tube Replacement Reason for Replacement: fell out Initial Tube Inserted: greater than 4 weeks Type of Tube: gastrostomy Use of Tube: medications and feeding Insertion Site Prior to Procedure: clean Nepali Tube Size (F): 18 Balloon Size (mls): 10 Verification of Placement: gastrograffin injection Tube Secured by: tape/dressing Patient Tolerated Procedure: well Critical care attestation.: If time is entered above; I have spent that time in minutes in the direct care of this critically ill patient, excluding procedure time. ED Disposition Clinical Impression: Encounter for feeding tube placement Disposition: DC-01 TO HOME OR SELFCARE Is pt being admited?: No Condition: Stable Instructions: How to Use and Care for Your PEG Tube (ED) Referrals: PRIMARY CARE [Primary Care Provider] - 3-5 Days Time of Disposition: 11:35
--- NOTE | 2020-01-24 11:30 | XRay Report ---
X-RAY G-TUBE STUDY HISTORY: Gastrostomy tube check. COMPARISON: 06/11/2019 TECHNIQUE: Frontal view of the abdomen obtained after injection of small volume water-soluble contras t into the gastrostomy tube. Upon completion of the examination, the gastrostomy tube was flushed. FINDINGS: Gastrostomy tube: Gastrostomy tube projects over the stomach. There is intraluminal contrast with n o extravasation. Contrast extends into the duodenum. Bowel: Nonobstructive bowel pattern. Osseous Structures: No significant osseous abnormality. Additional findings: None. IMPRESSION: 1. Intraluminal contrast without extravasation after G tube injection. Signer Name: Dwight Bustamante MD Signed: 01/24/2020 11:26 AM Workstation Name: [id number]
[2020-01-24 11:38] VITALS: BP 123/77
== END 2020-01-24 12:36 | disposition home or self-care (01) ==
LOC: ED 10:03
DX: Z43.1 Encounter for attention to gastrostomy (principal); I11.0 Hypertensive heart disease with heart failure; I50.9 Heart failure, unspecified; E11.9 Type 2 diabetes mellitus without complications; M19.90 Unspecified osteoarthritis, unspecified site; E03.9 Hypothyroidism, unspecified; Z88.8 Allergy status to other drugs, medicaments and biological substances; Z79.4 Long term (current) use of insulin; Z79.899 Other long term (current) drug therapy; Z98.890 Other specified postprocedural states
CPT/HCPCS: 43762; 74018; 99283; Q9967

== ENCOUNTER 2020-01-24 20:25 | Emergency (ER) | payer MEDICARE ==
--- NOTE | 2020-01-24 21:59 | Emergency Department Report ---
ED General Adult HPI - General Chief complaint: Tube Replacement Stated complaint: FEEDING TUBE Time Seen by Provider: 01/24/20 20:37 Source: EMS Mode of arrival: Stretcher Limitations: Language Barrier - History of Present Illness Initial comments: Patient presents to the emergency department with her daughter for G-tube placement. Patient was here this morning to have the G-tube replaced. G-tube was in place was assessed this morning. This evening the daughter went to change her mother noticed that the G-tube had dislodged. -: Sudden Severity scale (0 -10): 0 Improves with: none Worsens with: none Associated Symptoms: denies other symptoms Treatments Prior to Arrival: none - Related Data Home Medications Medication Instructions Recorded Confirmed Last Taken Insulin Detemir [Levemir Flexpen] 5 units SQ QPM 11/15/13 06/09/16 09/08/14 Levothyroxine [Synthroid] 25 mcg FEEDTUBE DAILY 11/15/13 06/09/16 09/08/14 Mirtazapine [Remeron 15mg TAB] 15 mg FEEDTUBE QPM 11/15/13 06/09/16 09/08/14 amLODIPine 10 mg FEEDTUBE DAILY 11/15/13 06/09/16 09/08/14 carvediloL [Coreg] 25 mg FEEDTUBE BID 11/15/13 06/09/16 09/08/14 lisinopriL [Zestril TAB] 20 mg FEEDTUBE DAILY 11/15/13 06/09/16 09/08/14 Ferrous Sulfate [Ferrous Sulfate 7.5 ml FEEDTUBE BID 09/09/14 06/09/16 09/08/14 Oral Liq 220 Mg/5 Ml] Allergies Allergy/AdvReac Type Severity Reaction Status Date / Time enoxaparin sodium AdvReac Unknown Verified 11/12/15 17:01 [From Lovenox] ED Review of Systems ROS: Stated complaint: FEEDING TUBE Other details as noted in HPI Comment: All other systems reviewed and negative Constitutional: denies: chills, fever Eyes: denies: eye pain, eye discharge, vision change ENT: denies: ear pain, throat pain Respiratory: denies: cough, shortness of breath, wheezing Cardiovascular: denies: chest pain, palpitations Endocrine: no symptoms reported Gastrointestinal: denies: abdominal pain, nausea, diarrhea Genitourinary: denies: urgency, dysuria, discharge Musculoskeletal: denies: back pain, joint swelling, arthralgia Skin: denies: rash, lesions Neurological: denies: headache, weakness, paresthesias Psychiatric: denies: anxiety, depression Hematological/Lymphatic: denies: easy bleeding, easy bruising ED Past Medical Hx - Past Medical History Previous Medical History?: Yes Hx Hypertension: Yes Hx CVA: Yes (2011 WITH RIGHT SIDED DEFICITS) Hx Heart Attack/AMI: (CHF) Hx Congestive Heart Failure: Yes Hx Diabetes: Yes Hx Deep Vein Thrombosis: Yes Hx Arthritis: Yes Hx HIV: No Additional medical history: HYPOTHYROIDSIM, GI bleed - Surgical History Past Surgical History?: Yes Additional Surgical History: Partial colectomy (family does not know the indication), Rectal Surgery. G-tube - Social History Smoking Status: Never Smoker - Medications Home Medications: Home Medications Medication Instructions Recorded Confirmed Last Taken Type Insulin Detemir [Levemir Flexpen] 5 units SQ QPM 11/15/13 06/09/16 09/08/14 History Levothyroxine [Synthroid] 25 mcg FEEDTUBE DAILY 11/15/13 06/09/16 09/08/14 History Mirtazapine [Remeron 15mg TAB] 15 mg FEEDTUBE QPM 11/15/13 06/09/16 09/08/14 History amLODIPine 10 mg FEEDTUBE DAILY 11/15/13 06/09/16 09/08/14 History carvediloL [Coreg] 25 mg FEEDTUBE BID 11/15/13 06/09/16 09/08/14 History lisinopriL [Zestril TAB] 20 mg FEEDTUBE DAILY 11/15/13 06/09/16 09/08/14 History Ferrous Sulfate [Ferrous Sulfate 7.5 ml FEEDTUBE BID 09/09/14 06/09/16 09/08/14 History Oral Liq 220 Mg/5 Ml] ED Physical Exam - General Limitations: Language Barrier General appearance: alert, in no apparent distress - Head Head exam: Present: atraumatic, normocephalic - Eye Eye exam: Present: normal appearance - ENT ENT exam: Present: mucous membranes moist - Neck Neck exam: Present: normal inspection - Respiratory Respiratory exam: Present: normal lung sounds bilaterally. Absent: respiratory distress - Cardiovascular Cardiovascular Exam: Present: regular rate, normal rhythm. Absent: systolic murmur, diastolic murmur, rubs, gallop - GI/Abdominal GI/Abdominal exam: Present: soft, normal bowel sounds, other (Ostomy of G-tube present on exam) - Extremities Exam Extremities exam: Present: normal inspection - Back Exam Back exam: Present: normal inspection - Neurological Exam Neurological exam: Present: alert, oriented X3, CN II-XII intact. Absent: motor sensory deficit - Psychiatric Psychiatric exam: Present: normal affect, normal mood - Skin Skin exam: Present: warm, dry, intact, normal color. Absent: rash ED Course Vital Signs 01/24/20 20:34 Temperature 98.1 F O2 Sat by Pulse 95 Oximetry - Feeding Tube Replacement Reason for Replacement: fell out Initial Tube Inserted: greater than 4 weeks Type of Tube: gastrostomy Use of Tube: medications and feeding Insertion Site Prior to Procedure: clean Tube Used for Reinsertion: other (18 Czech G-tube) Verification of Placement: auscultation, gastrograffin injection Tube Secured by: other (Abdominal binder) Patient Tolerated Procedure: well Complications: other (None, patient tolerated procedure well) ED Medical Decision Making - Radiology Data Radiology results: image reviewed - Medical Decision Making Gastrografin study done and interpreted by me as good placement Critical care attestation.: If time is entered above; I have spent that time in minutes in the direct care of this critically ill patient, excluding procedure time. ED Disposition Clinical Impression: Encounter for gastrojejunal tube placement, Encounter for feeding tube placement Disposition: -01 TO HOME OR SELFCARE Is pt being admited?: No Does the pt Need Aspirin: No Condition: Stable Instructions: Tube Feeding (ED) Additional Instructions: return if worse Referrals: JAMIA GLEZ MD [Primary Care Provider] - 3-5 Days Time of Disposition: 22:16
--- NOTE | 2020-01-24 22:39 | XRay Report ---
Gastrostomy tube study 2 views INDICATION / CLINICAL INFORMATION: Gastrostomy tube placement. COMPARISON: Gastrostomy tube study performed earlier today. FINDINGS: TUBES / LINES: A gastrostomy tube is unchanged in position. Contrast injected through the tube opacif ies the stomach as expected. Previously administered contrast is seen along the colon. BOWEL GAS PATTERN: No significant abnormality. FREE AIR / EXTRALUMINAL GAS: None seen. ADDITIONAL FINDINGS: A probable calcified uterine fibroid is again noted. Surgical changes are again seen along the lower abdomen and pelvis. IMPRESSION: Appropriate positioning of the gastrostomy tube. Signer Name: Nixon Anguiano MD Signed: 01/24/2020 10:34 PM Workstation Name: [id number]
== END 2020-01-24 23:25 | disposition home or self-care (01) ==
LOC: ED 20:25
DX: Z46.59 Encounter for fitting and adjustment of other gastrointestinal appliance and device (principal); I11.0 Hypertensive heart disease with heart failure; I50.9 Heart failure, unspecified; E11.9 Type 2 diabetes mellitus without complications; M19.90 Unspecified osteoarthritis, unspecified site; E03.9 Hypothyroidism, unspecified; K92.2 Gastrointestinal hemorrhage, unspecified; Z86.718 Personal history of other venous thrombosis and embolism; Z79.899 Other long term (current) drug therapy; Z98.890 Other specified postprocedural states; Z79.4 Long term (current) use of insulin; Z88.8 Allergy status to other drugs, medicaments and biological substances
CPT/HCPCS: 43762; 74018; 99282; Q9967

== ENCOUNTER 2020-12-10 18:32 | Emergency (ER) | payer MEDICARE ==
--- NOTE | 2020-12-10 19:47 | Emergency Department Report ---
HPI - General Time Seen by Provider: 12/10/20 19:37 - HPI HPI: This is a 70-year-old -[place] female who presents to the emergency department via EMS from home with the complaint of a dislodged feeding tube that occurred prior to presentation. She has a past medical history of CVA with subsequent dysphagia and aphasia, hypertension, CHF. Patient is nonverbal but does answer some questions with nodding her head. She denies any abdominal pain, vomiting, fever. EMS arrives with a dislodged 18 Urdu feeding tube. ED Past Medical Hx - Past Medical History Hx Hypertension: Yes Hx CVA: Yes (2010 WITH RIGHT SIDED DEFICITS) Hx Heart Attack/AMI: (CHF) Hx Congestive Heart Failure: Yes Hx Diabetes: Yes Hx Deep Vein Thrombosis: Yes Hx Liver Disease: No Hx Renal Disease: No Hx Arthritis: Yes Hx HIV: No Additional medical history: AFIB, HYPOTHYROIDSIM, GI bleed - Surgical History Hx Pacemaker: No Hx Internal Defibrillator: No Additional Surgical History: Partial colectomy (family does not know the indication), Rectal Surgery. G-tube - Social History Smoking Status: Never Smoker - Medications Home Medications: Home Medications Medication Instructions Recorded Confirmed Last Taken Type Insulin Detemir [Levemir Flexpen] 5 units SQ QPM 11/15/13 06/23/20 09/08/14 History Levothyroxine [Synthroid] 25 mcg FEEDTUBE DAILY 11/15/13 06/23/20 09/08/14 History Mirtazapine [Remeron 15mg TAB] 15 mg FEEDTUBE QPM 11/15/13 06/23/20 09/08/14 History amLODIPine 10 mg FEEDTUBE DAILY 11/15/13 06/23/20 09/08/14 History carvediloL [Coreg] 25 mg FEEDTUBE BID 11/15/13 06/23/20 09/08/14 History lisinopriL [Zestril TAB] 20 mg FEEDTUBE DAILY 11/15/13 06/23/20 09/08/14 History Ferrous Sulfate [Ferrous Sulfate 7.5 ml FEEDTUBE BID 09/09/14 06/23/20 09/08/14 History Oral Liq 220 Mg/5 Ml] Pantoprazole [Protonix TAB] 40 mg PO QDAY #30 tablet 06/25/20 Unknown Rx ED Review of Systems ROS: Stated complaint: DISLODGED FEED TUBE Other details as noted in HPI Comment: All other systems reviewed and negative Constitutional: denies: fever Respiratory: denies: cough, shortness of breath Cardiovascular: denies: chest pain, palpitations Gastrointestinal: denies: abdominal pain, vomiting Skin: denies: rash, lesions Physical Exam - Physical Exam Physical Exam: GENERAL: The patient is well-developed well-nourished. HENT: Normocephalic. Atraumatic. Patient has moist mucous membranes. EYES: Extraocular motions are intact. NECK: Supple. Trachea is midline. CHEST/LUNGS: Clear to auscultation. There is no respiratory distress noted. HEART/CARDIOVASCULAR: Regular. There is no tachycardia. There is no murmur. ABDOMEN: Abdomen is soft, nontender. Patient has normal bowel sounds. There is no abdominal distention. SKIN: Skin is warm and dry. There is a small ostomy to the mid abdomen where the patient previously had a PEG tube. NEURO: Patient is awake but nonverbal. Right-sided hemiparesis. Follows some commands. MUSCULOSKELETAL: There is no tenderness or deformity. - Feeding Tube Replacement Reason for Replacement: fell out Initial Tube Inserted: greater than 4 weeks Type of Tube: gastrostomy Insertion Site Prior to Procedure: clean Tube Used for Reinsertion: ROMELIA Urdu Tube Size (F): 18 Verification of Placement: gastrograffin injection Tube Secured by: tape/dressing Patient Tolerated Procedure: well ED Medical Decision Making - Radiology Data Radiology results: report reviewed ABDOMEN AP PORTABLE SUPINE 1999 INDICATION: G tube placement COMPARISON: CT abdomen and pelvis 06/23/2020 FINDINGS: Single supine image was obtained after injection of the gastrostomy tube with water-soluble contrast by floor personnel. Contrast is seen within the stomach and duodenum. No definite extravasation is seen. The gastrostomy tube balloon is positioned roughly in the area of the inferior extension of the stomach as seen on the prior CT. - Medical Decision Making This patient was brought in as her feeding tube became dislodged. I was able to replace it with another 18 Urdu ROMELIA tube. A G-tube x-ray study was performed that shows contrast within the stomach and duodenum without signs of extravasation. The area of the feeding tube appears clean without any surrounding erythema, purulent discharge. Vital signs have been reassuring throughout her ED course. Critical Care Time: No Critical care attestation.: If time is entered above; I have spent that time in minutes in the direct care of this critically ill patient, excluding procedure time. ED Disposition Clinical Impression: PEG tube malfunction Disposition: - TO HOME OR SELFCARE Is pt being admited?: No Condition: Stable Instructions: How to Care for a Feeding Tube, Gastrostomy Tube Replacement Additional Instructions: Please follow-up with a primary care physician in the next few days. Return to the emergency department with any worsening of your symptoms, new or concerning symptoms not addressed during this current emergency department visit, or with any acute distress. Referrals: PRIMARY CAREMD [Primary Care Provider] - 3-5 Days Time of Disposition: 20:27
--- NOTE | 2020-12-10 20:24 | XRay Report ---
ABDOMEN AP PORTABLE SUPINE 1999 INDICATION: G tube placement COMPARISON: CT abdomen and pelvis 06/23/2020 FINDINGS: Single supine image was obtained after injection of the gastrostomy tube with water-soluble contrast by floor personnel. Contrast is seen within the stomach and duodenum. No definite extravasation is seen. The gastrostomy tube balloon is positioned roughly in the area of the inferior extension of the stomach as seen on th e prior CT. Signer Name: Francisco J Barajas MD Signed: 12/10/2020 8:20 PM Workstation Name: [id number]
[2020-12-11 09:54] VITALS: BP 129/78
== END 2020-12-11 09:53 | disposition home or self-care (01) ==
LOC: ED 18:32
DX: K94.23 Gastrostomy malfunction (principal); I11.0 Hypertensive heart disease with heart failure; I50.9 Heart failure, unspecified; E11.9 Type 2 diabetes mellitus without complications; M19.90 Unspecified osteoarthritis, unspecified site; Z86.73 Personal history of transient ischemic attack (TIA), and cerebral infarction without residual deficits; Z98.890 Other specified postprocedural states; Z79.4 Long term (current) use of insulin; Z79.899 Other long term (current) drug therapy; Z88.8 Allergy status to other drugs, medicaments and biological substances
CPT/HCPCS: 43761; 74018; 99283; Q9967

== ENCOUNTER 2021-02-01 18:46 | Emergency (ER) | payer MEDICARE ==
--- NOTE | 2021-02-01 19:45 | Emergency Department Report ---
ED General Adult HPI - General Chief complaint: Tube Replacement Stated complaint: BLOCKED GTUBE Time Seen by Provider: 02/01/21 19:30 Source: patient, EMS Mode of arrival: Stretcher Limitations: Physical Limitation - History of Present Illness Initial comments: Patient is 70 years old female with history of CVA. Patient brought to the emergency room via EMS from home for G-tube malfunction. Patient daughter stated that she feel the tube is clogged. Patient denied any other symptoms. No fever, chills, abdominal pain nausea or vomiting. No chest pain or shortness of breath. - Related Data Home Medications Medication Instructions Recorded Confirmed Last Taken Insulin Detemir [Levemir Flexpen] 5 units SQ QPM 11/15/13 06/23/20 09/08/14 Levothyroxine [Synthroid] 25 mcg FEEDTUBE DAILY 11/15/13 06/23/20 09/08/14 Mirtazapine [Remeron 15mg TAB] 15 mg FEEDTUBE QPM 11/15/13 06/23/20 09/08/14 amLODIPine 10 mg FEEDTUBE DAILY 11/15/13 06/23/20 09/08/14 carvediloL [Coreg] 25 mg FEEDTUBE BID 11/15/13 06/23/20 09/08/14 lisinopriL [Zestril TAB] 20 mg FEEDTUBE DAILY 11/15/13 06/23/20 09/08/14 Ferrous Sulfate [Ferrous Sulfate 7.5 ml FEEDTUBE BID 09/09/14 06/23/20 09/08/14 Oral Liq 220 Mg/5 Ml] Previous Rx's Medication Instructions Recorded Last Taken Type Pantoprazole [Protonix TAB] 40 mg PO QDAY #30 tablet 06/25/20 Unknown Rx Allergies Allergy/AdvReac Type Severity Reaction Status Date / Time enoxaparin sodium AdvReac Unknown Verified 11/12/15 17:01 [From [employer])] ED Review of Systems ROS: Stated complaint: BLOCKED GTUBE Other details as noted in HPI Comment: All other systems reviewed and negative Constitutional: denies: chills, fever Respiratory: denies: cough, shortness of breath, SOB with exertion Cardiovascular: denies: chest pain, palpitations Gastrointestinal: denies: abdominal pain, nausea, vomiting Musculoskeletal: denies: back pain Neurological: denies: headache, weakness ED Past Medical Hx - Past Medical History Hx Hypertension: Yes Hx CVA: Yes (2011 WITH RIGHT SIDED DEFICITS) Hx Heart Attack/AMI: (CHF) Hx Congestive Heart Failure: Yes Hx Diabetes: Yes Hx Deep Vein Thrombosis: Yes Hx Liver Disease: No Hx Renal Disease: No Hx Arthritis: Yes Hx HIV: No Additional medical history: AFIB, HYPOTHYROIDSIM, GI bleed - Surgical History Hx Pacemaker: No Hx Internal Defibrillator: No Additional Surgical History: Partial colectomy (family does not know the indication), Rectal Surgery. G-tube - Social History Smoking Status: Never Smoker - Medications Home Medications: Home Medications Medication Instructions Recorded Confirmed Last Taken Type Insulin Detemir [Levemir Flexpen] 5 units SQ QPM 11/15/13 06/23/20 09/08/14 History Levothyroxine [Synthroid] 25 mcg FEEDTUBE DAILY 11/15/13 06/23/20 09/08/14 History Mirtazapine [Remeron 15mg TAB] 15 mg FEEDTUBE QPM 11/15/13 06/23/20 09/08/14 History amLODIPine 10 mg FEEDTUBE DAILY 11/15/13 06/23/20 09/08/14 History carvediloL [Coreg] 25 mg FEEDTUBE BID 11/15/13 06/23/20 09/08/14 History lisinopriL [Zestril TAB] 20 mg FEEDTUBE DAILY 11/15/13 06/23/20 09/08/14 History Ferrous Sulfate [Ferrous Sulfate 7.5 ml FEEDTUBE BID 09/09/14 06/23/20 09/08/14 History Oral Liq 220 Mg/5 Ml] Pantoprazole [Protonix TAB] 40 mg PO QDAY #30 tablet 06/25/20 Unknown Rx ED Physical Exam - General Limitations: Physical Limitation General appearance: alert, in no apparent distress - Head Head exam: Present: atraumatic, normocephalic - ENT ENT exam: Present: normal exam, normal orophraynx, mucous membranes moist - Neck Neck exam: Present: normal inspection, full ROM. Absent: tenderness, meningismus - Cardiovascular Cardiovascular Exam: Present: regular rate, normal rhythm, normal heart sounds - GI/Abdominal GI/Abdominal exam: Present: soft, normal bowel sounds. Absent: distended, tenderness, guarding, rebound, rigid, organomegaly, mass - Extremities Exam Extremities exam: Present: normal inspection - Back Exam Back exam: Present: normal inspection - Neurological Exam Neurological exam: Present: alert - Skin Skin exam: Present: warm, intact, normal color ED Course Vital Signs 02/01/21 19:33 Temperature 98.5 F Pulse Rate 87 Respiratory 20 Rate Blood Pressure 144/73 O2 Sat by Pulse 96 Oximetry - Procedure Description Procedures done: G-tube replaced by 18 size with no complication. ED Medical Decision Making - Radiology Data Radiology results: report reviewed - Medical Decision Making Patient is 70 years old female with history of CVA. Patient brought to the [facility] room via EMS from home for G-tube malfunction. Patient daughter stated that she feel the tube is clogged. Patient denied any other symptoms. No fever, chills, abdominal pain nausea or vomiting. No chest pain or shortness of breath. G-tube placed by me using an 18 size. No complication. X-ray showed contrast in the stomach and intestine indicating normal position. Patient will be dis charged home to follow-up with her primary care physician for further management. Critical care attestation.: If time is entered above; I have spent that time in minutes in the direct care of this critically ill patient, excluding procedure time. ED Disposition Clinical Impression: Gastrostomy tube dysfunction Disposition: -01 TO HOME OR SELFCARE Is pt being admited?: No Condition: Stable Instructions: PEG Tube Home Guide, [id number] Referrals: PRIMARY CARE, [Primary Care Provider] - 3-5 Days
--- NOTE | 2021-02-01 20:21 | XRay Report ---
ABDOMEN 2 VIEW(S) INDICATION / CLINICAL INFORMATION: G-tube replacement. COMPARISON: G-tube study from 12/10/2020 FINDINGS: TUBES / LINES: Midline gastrostomy tube injected with contrast. BOWEL GAS PATTERN: Intraluminal contrast seen in the proximal small bowel and stomach. It is reported that 1 bottle of Omnipaque 300 was utilized for this exam. FREE AIR / EXTRALUMINAL GAS: None seen. ADDITIONAL FINDINGS: No significant additional findings. IMPRESSION: 1. Intraluminal contrast without extravasation to suggest malpositioned gastrostomy tube/tract. Signer Name: Elliott Barnes MD Signed: 02/01/2021 8:17 PM Workstation Name: [id number]
[2021-02-01 23:55] VITALS: BP 143/89
== END 2021-02-01 23:55 | disposition home or self-care (01) ==
LOC: ED 18:46
DX: K94.23 Gastrostomy malfunction (principal); I11.0 Hypertensive heart disease with heart failure; I50.9 Heart failure, unspecified; E11.9 Type 2 diabetes mellitus without complications; M19.91 Primary osteoarthritis, unspecified site; Z86.73 Personal history of transient ischemic attack (TIA), and cerebral infarction without residual deficits; Z98.890 Other specified postprocedural states; Z79.4 Long term (current) use of insulin; Z79.899 Other long term (current) drug therapy; Z88.8 Allergy status to other drugs, medicaments and biological substances
CPT/HCPCS: 43762; 74018; 99283; Q9967

== ENCOUNTER 2021-04-24 16:11 | Inpatient (IN) | payer MEDICARE ==
[2021-04-24] MEDS ORDERED: ONDANSETRON 4 MG/2 ML INJ IV ONE (17:32)
[2021-04-24] MEDS ORDERED: PANTOPRAZOLE 40 MG INJ IV ONE (17:35)
[2021-04-24] MEDS ORDERED: SODIUM CHLORIDE 0.9% 1000 ML 1,000 ML IV ONE (17:35)
--- NOTE | 2021-04-24 17:39 | Emergency Department Report ---
ED GI Bleed HPI - General Chief complaint: Nausea/Vomiting/Diarrhea Stated complaint: COFFEE GROUND EMESIS Time Seen by Provider: 04/24/21 17:16 Source: patient, EMS Mode of arrival: Stretcher Limitations: Physical Limitation, Other - History of Present Illness Initial comments: Patient is 70 years old female with history of CVA, right-sided weakness, h ypertension and history of GI bleed. Patient is bedridden. Patient brought to the emergency room via EMS from home for evaluation of 2 episodes of coffee- ground emesis started last night. Patient is nonverbal. History is from patient daughter at bedside. Daughter stated that patient she was doing well until yesterday when she started having coffee-ground emesis. She stated that she has similar episode last year. Patient was admitted here last year and had an endoscopy by Dr. Andrade Anthony and found esophagitis patient started on PPI. Patient is currently taking aspirin 81 mg daily no other blood thinner medicine. Daughter denied any black stool or hematochezia. MD complaint: coffee ground emesis Location: epigastric Radiation: none Context: history of GI bleed - Related Data Home Medications Medication Instructions Recorded Confirmed Last Taken Insulin Detemir [Levemir Flexpen] 5 units SQ QPM 11/15/13 06/23/20 09/08/14 Levothyroxine [Synthroid] 25 mcg FEEDTUBE DAILY 11/15/13 06/23/20 09/08/14 Mirtazapine [Remeron 15mg TAB] 15 mg FEEDTUBE QPM 11/15/13 06/23/20 09/08/14 amLODIPine 10 mg FEEDTUBE DAILY 11/15/13 06/23/20 09/08/14 carvediloL [Coreg] 25 mg FEEDTUBE BID 11/15/13 06/23/20 09/08/14 lisinopriL [Zestril TAB] 20 mg FEEDTUBE DAILY 11/15/13 06/23/20 09/08/14 Ferrous Sulfate [Ferrous Sulfate 7.5 ml FEEDTUBE BID 09/09/14 06/23/20 09/08/14 Oral Liq 220 Mg/5 Ml] Previous Rx's Medication Instructions Recorded Last Taken Type Pantoprazole [Protonix TAB] 40 mg PO QDAY #30 tablet 06/25/20 Unknown Rx Allergies Allergy/AdvReac Type Severity Reaction Status Date / Time enoxaparin sodium AdvReac Unknown Verified 11/12/15 17:01 [From Lovenox] ED Review of Systems ROS: Stated complaint: COFFEE GROUND EMESIS Other details as noted in HPI Comment: All other systems reviewed and negative Constitutional: denies: chills, fever Respiratory: denies: cough, shortness of breath, SOB with exertion, SOB at rest Cardiovascular: palpitations. denies: chest pain Gastrointestinal: abdominal pain, nausea, vomiting. denies: diarrhea, melena, hematochezia Genitourinary: denies: hematuria Neurological: denies: headache ED Past Medical Hx - Past Medical History Hx Hypertension: Yes Hx CVA: Yes (2011 WITH RIGHT SIDED DEFICITS) Hx Heart Attack/AMI: (CHF) Hx Congestive Heart Failure: Yes Hx Diabetes: Yes Hx Deep Vein Thrombosis: Yes Hx Liver Disease: No Hx Renal Disease: No Hx Arthritis: Yes Hx HIV: No Additional medical history: AFIB, HYPOTHYROIDSIM, GI bleed - Surgical History Hx Pacemaker: No Hx Internal Defibrillator: No Additional Surgical History: Partial colectomy (family does not know the indication), Rectal Surgery. G-tube - Social History Smoking Status: Former Smoker - Medications Home Medications: Home Medications Medication Instructions Recorded Confirmed Last Taken Type Insulin Detemir [Levemir Flexpen] 5 units SQ QPM 11/15/13 06/23/20 09/08/14 History Levothyroxine [Synthroid] 25 mcg FEEDTUBE DAILY 11/15/13 06/23/20 09/08/14 History Mirtazapine [Remeron 15mg TAB] 15 mg FEEDTUBE QPM 11/15/13 06/23/20 09/08/14 History amLODIPine 10 mg FEEDTUBE DAILY 11/15/13 06/23/20 09/08/14 History carvediloL [Coreg] 25 mg FEEDTUBE BID 11/15/13 06/23/20 09/08/14 History lisinopriL [Zestril TAB] 20 mg FEEDTUBE DAILY 11/15/13 06/23/20 09/08/14 History Ferrous Sulfate [Ferrous Sulfate 7.5 ml FEEDTUBE BID 09/09/14 06/23/20 09/08/14 History Oral Liq 220 Mg/5 Ml] Pantoprazole [Protonix TAB] 40 mg PO QDAY #30 tablet 06/25/20 Unknown Rx ED Physical Exam - General Limitations: Physical Limitation, Other General appearance: alert, in no apparent distress - Head Head exam: Present: atraumatic, normocephalic, normal inspection - Eye Eye exam: Present: normal appearance - ENT ENT exam: Present: normal exam, normal orophraynx, mucous membranes moist - Neck Neck exam: Present: normal inspection, full ROM. Absent: tenderness, meningismus - Respiratory Respiratory exam: Present: normal lung sounds bilaterally - Cardiovascular Cardiovascular Exam: Present: regular rate, normal rhythm, normal heart sounds - GI/Abdominal GI/Abdominal exam: Present: soft, normal bowel sounds. Absent: distended, tenderness, guarding, rebound, rigid, organomegaly, mass, bruit, pulsatile mass, hernia - Neurological Exam Neurological exam: Present: alert, motor sensory deficit - Psychiatric Psychiatric exam: Present: normal mood - Skin Skin exam: Present: warm, dry ED Course Vital Signs 04/24/21 16:26 Temperature 99.8 F H Pulse Rate 100 H Respiratory 22 Rate Blood Pressure 139/82 O2 Sat by Pulse 93 Oximetry ED Medical Decision Making - Lab Data Result diagrams: 04/24/21 17:41 04/24/21 17:41 - Medical Decision Making Patient is 70 years old female with history of CVA, right-sided weakness, hypertension and history of GI bleed. Patient is bedridden. Patient brought to the emergency room via EMS from home for evaluation of 2 episodes of coffee- ground emesis started last night. Patient is nonverbal. History is from patient daughter at bedside. Daughter stated that patient she was doing well until yesterday when she started having coffee-ground emesis. She stated that she has similar episode last year. Patient was admitted here last year and had an endoscopy by Dr. Andrade Anthony and found esophagitis patient started on PPI. Patient is currently taking aspirin 81 mg daily no other blood thinner medicine. Daughter denied any black stool or hematochezia. Patient received Zofran, Protonix and morphine. Normal saline started at 250 mL/h. Labs reviewed. I discussed the patient with Dr. Marcus Pedraza, interventional radiology rn on-call. He advised to admit the patient to the hospital and will follow up on the patient. I discussed the patient with Dr. Gregory, he agreed to admit the patient to medical service for further management. Critical Care Time: Yes Critical care time in (mins) excluding proc time.: 30 Critical care attestation.: If time is entered above; I have spent that time in minutes in the direct care of this critically ill patient, excluding procedure time. ED Disposition Clinical Impression: GI bleed, Acute abdominal pain, Coffee ground vomiting Disposition: OP ADMIT IP TO THIS HOSP Is pt being admited?: Yes Condition: Stable Referrals: PRIMARY CARE,MD [Primary Care Provider] - 3-5 Days
[2021-04-24 17:50] LABS: Basophils # (Auto) 0.1 K/mm3 (0.0-0.1); Basophils % (Auto) 0.3 % (0.0-1.8); Hematocrit 36.3 % (30.3-42.9); Hemoglobin 12.8 gm/dl (10.1-14.3); Lymphocytes # (Auto) 1.6 K/mm3 (1.2-5.4); Lymphocytes % (Auto) 10.2 % (13.4-35.0); Mean Corpuscular HGB Conc 35 % (30-34); Mean Corpuscular Volume 72 fl (79-97); Monocytes # (Auto) 0.9 K/mm3 (0.0-0.8); Monocytes % (Auto) 5.8 % (0.0-7.3); Platelet Count 329 K/mm3 (140-440); Red Blood Count 5.02 M/mm3 (3.65-5.03); Red Cell Distribution Width 17.5 % (13.2-15.2)
[2021-04-24 18:02] LABS: INR 1.04 (0.87-1.13); Partial Thromboplastin Time 24.6 Sec. (24.2-36.6)
[2021-04-24] MEDS ORDERED: MORPHINE 2 MG/1 ML INJ IV ONE (18:06)
[2021-04-24 18:13] LABS: Alanine Aminotransferase 10 units/L (7-56); Albumin 3.6 g/dL (3.9-5); Blood Urea Nitrogen 20 mg/dL (7-17); Calcium 9.1 mg/dL (8.4-10.2); Hemolysis Index 4
[2021-04-24 18:14] LABS: BUN/Creatinine Ratio 33; Bilirubin,Direct < 0.2 mg/dL (0-0.2)
--- NOTE | 2021-04-24 18:37 | History and Physical Report ---
History of Present Illness Chief complaint: She was coughing up blood History of present illness: 70 YO Female with OA, DM, CHF, Hypothyroidism, Atrial Fib, CVA with RHP as well as Dysarthria, HTN presents to ED for evaluation. Patient is nonverbal and unable to provide history. Patient history provided EMS staff, ED staff, as well as by patient daughter who is at bedside during exam and interview. Patient daughter reports the patient was in her usual state of health and experienced 2 episodes of coffee-ground emesis overnight. EMS was notified and upon arrival the patient was found to be in distress and subsequently transported to [facility] for further care and evaluation of the aforementioned symptoms. The patient was seen and evaluated in the emergency department. All lab and imaging studies reviewed. Patient found to have clinical symptoms consistent with GI bleed as well as systemic inflammatory response syndrome. Patient admitted to medical floor and initiated on GI bleed protocol as well as empiric IV antibiotic therapy x1 dose. GI team consulted in ED. No reports of fever, chills, chest pain, productive cough, skin rash, recent ill contacts, or known exposure to COVID-19. Prior admission on 06/22/2020 reviewed. All medication listed at time of admission has been reconciled. Advanced care planning conducted in ED. Past History Past Medical History: atrial fib, arthritis, diabetes, hypertension, stroke Past Surgical History: bowel surgery, Other (ectal surgery in the past, G-tube placement, partial colectomy.)) Social history: single. denies: smoking, alcohol abuse, prescription drug abuse Family history: diabetes, hypertension Medications and Allergies Allergies Allergy/AdvReac Type Severity Reaction Status Date / Time enoxaparin sodium AdvReac Unknown Verified 11/12/15 17:01 [From Lovenox] Home Medications Medication Instructions Recorded Confirmed Last Taken Type Insulin Detemir [Levemir Flexpen] 5 units SQ QPM 11/15/13 06/23/20 09/08/14 History Levothyroxine [Synthroid] 25 mcg FEEDTUBE DAILY 11/15/13 06/23/20 09/08/14 History Mirtazapine [Remeron 15mg TAB] 15 mg FEEDTUBE QPM 11/15/13 06/23/20 09/08/14 History amLODIPine 10 mg FEEDTUBE DAILY 11/15/13 06/23/20 09/08/14 History carvediloL [Coreg] 25 mg FEEDTUBE BID 11/15/13 06/23/20 09/08/14 History lisinopriL [Zestril TAB] 20 mg FEEDTUBE DAILY 11/15/13 06/23/20 09/08/14 History Ferrous Sulfate [Ferrous Sulfate 7.5 ml FEEDTUBE BID 09/09/14 06/23/20 09/08/14 History Oral Liq 220 Mg/5 Ml] Pantoprazole [Protonix TAB] 40 mg PO QDAY #30 tablet 06/25/20 Unknown Rx Active Meds: Active Medications Sodium Chloride (Nacl 0.9% 1000 Ml) 1,000 mls @ 250 mls/hr IV ONCE ONE Stop: 04/24/21 21:34 Last Admin: 04/24/21 18:18 Dose: 250 mls/hr Documented by: Review of Systems ROS unobtainable: due to mental status Exam - Constitutional Vitals: Temp Pulse Resp BP Pulse Ox 99.8 F H 100 H 22 139/82 93 04/24/21 16:26 04/24/21 16:26 04/24/21 16:26 04/24/21 16:26 04/24/21 16:26 General appearance: Present: mild distress - EENT Eyes: Present: PERRL ENT: hearing intact, clear oral mucosa - Neck Neck: Present: supple, normal ROM - Respiratory Respiratory effort: normal Respiratory: bilateral: CTA - Cardiovascular Heart Sounds: Present: S1 & S2. Absent: rub, click - Extremities Extremities: pulses symmetrical, No edema Peripheral Pulses: within normal limits - Abdominal General gastrointestinal: Present: soft, non-tender, non-distended, normal bowel sounds Female genitourinary: Present: normal - Integumentary Integumentary: Present: clear, dry - Musculoskeletal Musculoskeletal: generalized weakness - Psychiatric Psychiatric: no appropriate mood/affect, no intact judgment & insight, no memory intact - Neurologic Neurologic: no CNII-XII intact, focal deficits, no moves all extremities, no gait normal Results - Labs CBC & Chem 7: 04/24/21 17:41 04/24/21 17:41 Labs: Abnormal lab results 04/24/21 04/24/21 Range/Units 17:41 17:41 WBC 15.6 H (4.5-11.0) K/mm3 MCV 72 L (79-97) fl MCH 26 L (28-32) pg MCHC 35 H (30-34) % RDW 17.5 H (13.2-15.2) % Lymph % (Auto) 10.2 L (13.4-35.0) % Adams # (Auto) 0.9 H (0.0-0.8) K/mm3 Seg Neutrophils % 83.7 H (40.0-70.0) % Seg Neutrophils # 13.0 H (1.8-7.7) K/mm3 BUN 20 H (7-17) mg/dL Glucose 214 H (65-100) mg/dL Albumin 3.6 L (3.9-5) g/dL Assessment and Plan - Patient Problems (1) GI bleed Current Visit: Yes Status: Acute Plan to address problem: GI bleed protocol: CBC, repeat CBC in a.m., PPI therapy, supportive care, GI team consulted. Further care and evaluation as per GI team. (2) SIRS (systemic inflammatory response syndrome) Current Visit: Yes Status: Acute Plan to address problem: CBC, CMP, urinalysis, IV antibiotic therapy, repeat CBC in a.m. (3) Diabetes Current Visit: Yes Status: Acute Plan to address problem: Sliding-scale insulin, Accu-Chek, hypoglycemia protocol (4) DVT prophylaxis Current Visit: No Status: Acute Plan to address problem: SCD to bilateral lower extremities while in bed, hold anticoagulation for now due to GI bleed. (5) Advance care planning Current Visit: Yes Status: Acute Plan to address problem: Disease education conducted chronic care plan discussed, diagnosis discussed, prognosis discussed, patient daughter knowledges understanding and agreement with care plan, +30 minutes.
[2021-04-24] MEDS ORDERED: ACETAMINOPHEN 325 MG TAB PO PRN (18:42)
[2021-04-24] MEDS ORDERED: ONDANSETRON 4 MG/2 ML INJ IV PRN (18:42)
[2021-04-24] MEDS ORDERED: cefTRIAXone/NS 2 GM/100 ML 2 GM/100 ML BAG IV ONE (20:00)
--- NOTE | 2021-04-24 20:07 | Cat Scan Report ---
CT abdomen pelvis w con INDICATION / CLINICAL INFORMATION: abdominal pain. TECHNIQUE: All CT scans at this location are performed using CT dose reduction for ALARA by means of automated e xposure control. COMPARISON: 06/23/2020 FINDINGS: A small hiatal hernia is present. No free fluid is seen in the abdomen. A gastrostomy tube is in the stomach. Small bilateral renal cysts are present. The liver, pancreas and adrenal glands and spleen a re normal. No enlarged mesenteric or retroperitoneal lymph nodes are seen. In the pelvis, no free fluid is seen. A large amount of fecal material is seen in the rectum and dist al sigmoid colon as well as in the ascending colon. An enlarged fibroid uterus is present. The bladde r is moderately distended. No enlarged lymph nodes are identified. The appendix is not well visualize d. No significant skeletal abnormality is seen. IMPRESSION: 1. Large amount of fecal material in the rectum and distal sigmoid colon 2. Gastrostomy tube in the stomach 3. Small hiatal hernia 4. Enlarged fibroid uterus 5. Moderate bladder distention Signer Name: Kartik Matthews MD FACR Signed: 04/24/2021 8:02 PM Workstation Name: [id number]
[2021-04-24] MEDS ORDERED: HYDROmorphone 1 MG/1 ML INJ IV PRN (20:55)
[2021-04-24] MEDS ORDERED: FERROUS SULFATE 220 MG/5 ML FEEDTUBE SCH (22:00)
[2021-04-24] MEDS ORDERED: [UNRECOGNIZED DRUG - OTHER] FEEDTUBE SCH (22:00)
[2021-04-25] MEDS: INSULIN GLARGINE 100 UNITS/ML SUB-Q SCH ×2 (00:02→22:51)
[2021-04-25] MEDS: FERROUS SULFATE 308 MG (62mg Elemental Iron) / 7 ML ELIXIR FEEDTUBE SCH ×3 (00:18→21:27)
[2021-04-25] MEDS: LEVOTHYROXINE 25 MCG TAB FEEDTUBE SCH (06:38)
[2021-04-25 06:48] LABS: Basophils % (Auto) 0.4 % (0.0-1.8); Eosinophils % (Auto) 0.2 % (0.0-4.3); Hematocrit 32.5 % (30.3-42.9); Hemoglobin 11.2 gm/dl (10.1-14.3); Lymphocytes # (Auto) 2.1 K/mm3 (1.2-5.4); Lymphocytes % (Auto) 17.8 % (13.4-35.0); Mean Corpuscular HGB Conc 35 % (30-34); Mean Corpuscular Volume 74 fl (79-97); Monocytes # (Auto) 1.5 K/mm3 (0.0-0.8); Monocytes % (Auto) 13.1 % (0.0-7.3); Red Blood Count 4.39 M/mm3 (3.65-5.03); Red Cell Distribution Width 17.7 % (13.2-15.2)
[2021-04-25 07:10] LABS: Blood Urea Nitrogen 18 mg/dL (7-17); Calcium 8.3 mg/dL (8.4-10.2); Hemolysis Index 1
[2021-04-25 07:11] LABS: BUN/Creatinine Ratio 30
[2021-04-25 07:15] LABS: Platelet Count 299 K/mm3 (140-440)
[2021-04-25] MEDS: LISINOPRIL 20 MG TAB FEEDTUBE SCH (10:00)
[2021-04-25] MEDS: amLODIPine 10 MG TAB FEEDTUBE SCH (10:00)
[2021-04-25] MEDS: carvediloL 25 MG TAB FEEDTUBE SCH ×3 (10:00→22:50)
--- NOTE | 2021-04-25 11:34 | Consultation ---
History of Present Illness - Reason for Consult Consult date: 04/25/21 Coffee ground emesis Requesting physician: MJ WILBURN - History of Present Illness Ms. Ochoa is a 70-year-old woman with a history of CVA, atrial fibrillation, hypertension, and an indwelling G-tube. She was sent in by her daughter for an episode of coffee-ground emesis. She has not had any further symptoms. There is no other reported history of abdominal or GI distress. Of note, patient had a similar presentation in May of last year and on endoscopy on June 24, she had mild esophagitis. Daughter states patient is not on proton pump inhibitors at home. There has been no weight loss and patient has been tolerating tube feeds well at home. Medications reviewed. Past History Past Medical History: atrial fib, arthritis, diabetes, hypertension, stroke Past Surgical History: bowel surgery, Other (ectal surgery in the past, G-tube placement, partial colectomy.)) Social history: single. denies: smoking, alcohol abuse, prescription drug abuse Family history: diabetes, hypertension Medications and Allergies Allergies Allergy/AdvReac Type Severity Reaction Status Date / Time enoxaparin sodium AdvReac Unknown Verified 11/12/15 17:01 [From Lovenox] Home Medications Medication Instructions Recorded Confirmed Last Taken Type Insulin Detemir [Levemir Flexpen] 5 units SQ QPM 11/15/13 06/23/20 09/08/14 History Levothyroxine [Synthroid] 25 mcg FEEDTUBE DAILY 11/15/13 06/23/20 09/08/14 History Mirtazapine [Remeron 15mg TAB] 15 mg FEEDTUBE QPM 11/15/13 06/23/20 09/08/14 History amLODIPine 10 mg FEEDTUBE DAILY 11/15/13 06/23/20 09/08/14 History carvediloL [Coreg] 25 mg FEEDTUBE BID 11/15/13 06/23/20 09/08/14 History lisinopriL [Zestril TAB] 20 mg FEEDTUBE DAILY 11/15/13 06/23/20 09/08/14 History Ferrous Sulfate [Ferrous Sulfate 7.5 ml FEEDTUBE BID 09/09/14 06/23/20 09/08/14 History Oral Liq 220 Mg/5 Ml] Pantoprazole [Protonix TAB] 40 mg PO QDAY #30 tablet 06/25/20 Unknown Rx Active Meds: Active Medications Acetaminophen (Acetaminophen 325 Mg Tab) 650 mg PO Q4H PRN PRN Reason: Pain MILD(1-3)/Fever >100.5/TERRELL Amlodipine Besylate (Amlodipine 10 Mg Tab) 10 mg FEEDTUBE DAILY [facility] Carvedilol (Carvedilol 25 Mg Tab) 25 mg FEEDTUBE BID [facility] Last Admin: 04/25/21 00:00 Dose: 25 mg Documented by: Ferrous Sulfate (Ferrous Sulfate 308 Mg (62mg Elemental Iron) / 7 Ml Elixir) 308 mg FEEDTUBE BID [facility] Last Admin: 04/25/21 00:18 Dose: 308 mg Documented by: Hydromorphone HCl (Hydromorphone 1 Mg/1 Ml Inj) 0.25 mg IV Q4H PRN PRN Reason: Pain , Severe (7-10) Last Admin: 04/24/21 21:08 Dose: 0.25 mg Documented by: Insulin Glargine (Insulin Glargine 100 Units/Ml) 5 units SUB-Q QHS [facility] Last Admin: 04/25/21 00:02 Dose: 5 units Documented by: Levothyroxine Sodium (Levothyroxine 25 Mcg Tab) 25 mcg FEEDTUBE DAILY@0600 [facility] Last Admin: 04/25/21 06:38 Dose: 25 mcg Documented by: Lisinopril (Lisinopril 20 Mg Tab) 20 mg FEEDTUBE DAILY [facility] Mirtazapine (Mirtazapine 15 Mg Tab) 15 mg FEEDTUBE QPM [facility] Ondansetron HCl (Ondansetron 4 Mg/2 Ml Inj) 4 mg IV Q8H PRN PRN Reason: Nausea And Vomiting Pantoprazole Sodium (Pantoprazole 40 Mg Inj) 40 mg IV BID [facility] Last Admin: 04/25/21 00:00 Dose: 40 mg Documented by: Sodium Chloride (Sodium Chloride 0.9% 10 Ml Flush Syringe) 10 ml IV BID [facility] Last Admin: 04/25/21 01:02 Dose: 10 ml Documented by: Sodium Chloride (Sodium Chloride 0.9% 10 Ml Flush Syringe) 10 ml IV PRN PRN PRN Reason: LINE FLUSH Review of Systems ROS unobtainable: due to mental status Exam - Constitutional Vitals: Temp Pulse Resp BP Pulse Ox 97.6 F 92 H 16 96/37 98 04/25/21 04:18 04/24/21 22:20 04/25/21 04:18 04/25/21 04:18 04/24/21 22:20 General appearance: Present: no acute distress, other (Nonverbal, but shakes head appropriately) - EENT Eyes: Present: PERRL, EOM intact ENT: hearing intact - Respiratory Respiratory effort: normal Respiratory: bilateral: CTA (anteriorly) - Cardiovascular Rhythm: irregularly irregular Heart Sounds: Present: S1 & S2 - Abdominal General gastrointestinal: Present: soft, non-tender (G-tube in place, clean site) Results - Labs CBC & Chem 7: 04/25/21 06:17 04/25/21 06:17 Labs: Abnormal lab results 04/24/21 04/24/21 04/24/21 Range/Units 17:41 17:41 22:19 WBC 15.6 H (4.5-11.0) K/mm3 MCV 72 L (79-97) fl MCH 26 L (28-32) pg MCHC 35 H (30-34) % RDW 17.5 H (13.2-15.2) % Lymph % (Auto) 10.2 L (13.4-35.0) % [place] % (Auto) (0.0-7.3) % [place] # (Auto) 0.9 H (0.0-0.8) K/mm3 Seg Neutrophils % 83.7 H (40.0-70.0) % Seg Neutrophils # 13.0 H (1.8-7.7) K/mm3 Chloride (98-107) mmol/L BUN 20 H (7-17) mg/dL Glucose 214 H (65-100) mg/dL POC Glucose 144 H (70-105) mg/dL Calcium (8.4-10.2) mg/dL Albumin 3.6 L (3.9-5) g/dL 04/25/21 04/25/21 04/25/21 Range/Units 06:17 06:17 07:38 WBC 11.6 H (4.5-11.0) K/mm3 MCV 74 L (79-97) fl MCH 26 L (28-32) pg MCHC 35 H (30-34) % RDW 17.7 H (13.2-15.2) % Lymph % (Auto) (13.4-35.0) % [place] % (Auto) 13.1 H (0.0-7.3) % [place] # (Auto) 1.5 H (0.0-0.8) K/mm3 Seg Neutrophils % (40.0-70.0) % Seg Neutrophils # 8.0 H (1.8-7.7) K/mm3 Chloride 107.8 H (98-107) mmol/L BUN 18 H (7-17) mg/dL Glucose 117 H (65-100) mg/dL POC Glucose 128 H (70-105) mg/dL Calcium 8.3 L (8.4-10.2) mg/dL Albumin (3.9-5) g/dL Assessment and Plan 1. Coffee ground emesis -likely due to known erosive esophagitis. Patient is not on proton pump inhibitors. Her hemoglobin is relatively stable. Stool is brown. G-tube does not have blood in it. I spoke with the patient's daughter and advised her that it would be appropriate to empirically start proton pump inhibitors and resume tube feeds as I expected the problem to be known. Patient's daughter was very concerned about other source of bleeding and wanted to exclude peptic ulcer disease. -Proceed with upper endoscopy -Daily proton pump inhibitors as an outpatient. -Monitor H&H and transfuse as needed.
[2021-04-25] MEDS: SODIUM CHLORIDE 0.9% 1000 ML 1,000 ML IV SCH (12:25)
--- NOTE | 2021-04-25 13:12 | Progress Note ---
Assessment and Plan Ms. Ochoa is a 70-year-old woman with a history of CVA, atrial fibrillation, hypertension, and an indwelling G-tube. She was sent in by her daughter for an episode of coffee-ground emesis. A/P -- GI bleed Current Visit: Yes Status: Acute Plan to address problem: GI bleed protocol: repeat CBC in a.m., PPI therapy, GI team consulted. Further care and evaluation as per GI team. -- SIRS (systemic inflammatory response syndrome)/leukocytosis likely reactive, cont IV antibiotic therapy, repeat CBC in a.m. -- Diabetes Sliding-scale insulin, Accu-Chek, hypoglycemia protocol -- DVT prophylaxis SCD to bilateral lower extremities while in bed, hold anticoagulation for now due to GI bleed. -- full code Daily course: 04/25/31: planned for EGD today. cont to monitor. Subjective Date of service: 04/25/21 Interval history: Patient seen and examined. Medical records and medication list reviewed. No acute event overnight noted by the RN. Patient is nonverbal but denies any chest pain or difficulty breathing. Plan for endoscopy today, discussed plan of care with the RN Objective - Exam Narrative Exam: General appearance: Present: no acute distress, other (Nonverbal, but shakes head appropriately) - EENT Eyes: Present: PERRL, EOM intact ENT: hearing intact - Respiratory Respiratory effort: normal Respiratory: bilateral: CTA (anteriorly) - Cardiovascular Rhythm: irregularly irregular Heart Sounds: Present: S1 & S2 - Abdominal General gastrointestinal: Present: soft, non-tender (G-tube in place, clean site) - Constitutional Vitals: Vital Signs - 12hr 04/25/21 04/25/21 04/25/21 04:18 12:00 12:30 Temperature 97.6 F 98.7 F 98.7 F Pulse Rate 74 74 Respiratory 16 16 16 Rate Blood Pressure 96/37 127/70 127/70 O2 Sat by Pulse 95 95 Oximetry - Integumentary Integumentary: clear, warm, dry - Neurologic Neurologic: no moves all extremities, no gait normal, other (Bilateral lower extremity paralysis with contracture) - Labs CBC & Chem 7: 04/25/21 06:17 04/25/21 06:17 Labs: Abnormal lab results 04/24/21 04/24/21 04/24/21 Range/Units 17:41 17:41 22:19 WBC 15.6 H (4.5-11.0) K/mm3 MCV 72 L (79-97) fl MCH 26 L (28-32) pg MCHC 35 H (30-34) % RDW 17.5 H (13.2-15.2) % Lymph % (Auto) 10.2 L (13.4-35.0) % [place] % (Auto) (0.0-7.3) % [place] # (Auto) 0.9 H (0.0-0.8) K/mm3 Seg Neutrophils % 83.7 H (40.0-70.0) % Seg Neutrophils # 13.0 H (1.8-7.7) K/mm3 Chloride (98-107) mmol/L BUN 20 H (7-17) mg/dL Glucose 214 H (65-100) mg/dL POC Glucose 144 H (70-105) mg/dL Calcium (8.4-10.2) mg/dL Albumin 3.6 L (3.9-5) g/dL 04/25/21 04/25/21 04/25/21 Range/Units 06:17 06:17 07:38 WBC 11.6 H (4.5-11.0) K/mm3 MCV 74 L (79-97) fl MCH 26 L (28-32) pg MCHC 35 H (30-34) % RDW 17.7 H (13.2-15.2) % Lymph % (Auto) (13.4-35.0) % [place] % (Auto) 13.1 H (0.0-7.3) % [place] # (Auto) 1.5 H (0.0-0.8) K/mm3 Seg Neutrophils % (40.0-70.0) % Seg Neutrophils # 8.0 H (1.8-7.7) K/mm3 Chloride 107.8 H (98-107) mmol/L BUN 18 H (7-17) mg/dL Glucose 117 H (65-100) mg/dL POC Glucose 128 H (70-105) mg/dL Calcium 8.3 L (8.4-10.2) mg/dL Albumin (3.9-5) g/dL
--- NOTE | 2021-04-25 13:30 | Anesthesia Consultation ---
Anesthesia Consult and Med Hx Date of service: 04/25/21 - Airway Anesthetic Teeth Evaluation: Good ROM Head & Neck: Adequate Mental/Hyoid Distance: Adequate Mallampati Class: Class III Intubation Access Assessment: Possibly Difficult - Pre-Operative Health Status ASA Pre-Surgery Classification: ASA3 Proposed Anesthetic Plan: MAC - Pulmonary Hx Respiratory Symptoms: No - Cardiovascular System Hx Hypertension: Yes Hx Coronary Artery Disease: (Hyperlipidemia) Hx Heart Attack/AMI: (CHF) Hx Percutaneous Transluminal Coronary Angioplasty (PTCA): No Hx Cardia Arrhythmia: Yes (a-fib) Hx Pacemaker: No Hx Internal Defibrillator: No Hx Peripheral Vascular Disease: (Recatal AVM on previous colonoscopy) - Central Nervous System CVA: Yes (w/ aphasia) Hx Psychiatric Problems: Yes - Gastrointestinal Hx Ulcer: Yes (GI bleed) Hx Gastroesophageal Reflux Disease: Yes - Endocrine Hx Renal Disease: No Hx Liver Disease: No Hx Insulin Dependent Diabetes: Yes Hx Hypothyroidism: Yes - Hematic Hx Anemia: Yes - Other Systems Hx Alcohol Use: No Hx Obesity: No
--- NOTE | 2021-04-25 13:31 | Anesthesia Day of Surgery ---
Anesthesia Day of Surgery - Day of Surgery Patient Examined: Yes Patient H&P Reviewed: Yes Patient is NPO: Yes
[2021-04-25] MEDS ORDERED: propofoL 200 MG/20 ML VIAL IV ONE (13:33)
[2021-04-25] MEDS ORDERED: LIDOCAINE MPF (2%) 20 MG/1 ML VIAL 5 ML ONE (13:37)
--- NOTE | 2021-04-25 13:50 | Post Operative Note ---
Pre-op diagnosis: Coffee ground emesis Post-op diagnosis: other (Ulcerative esophagitis, hiatal hernia) Findings: 1. Ulcerative esophagitis with linear ulcers, white-based, from 20 to 32 cm from gums. 2. 5 cm hiatal hernia 3. Normal stomach with G-tube balloon in place 4. Normal duodenum and bulb 5. No old or fresh blood noted. Procedure: EGD Anesthesia: MAC Surgeon: DUNIA JAMESON Estimated blood loss: none Pathology: none Condition: stable Disposition: floor (1. Chronic PPI 2. May resume tube feeding and discharge to home if H/H stable. Will sign off. Thanks.)
--- NOTE | 2021-04-25 16:46 | Post Anesthesia Evaluation ---
- Post Anesthesia Evaluation Patient Participated: Yes Airway Patent: Yes Stable Respiratory Function: Yes Nausea/Vomiting: No Temp > 96.8F: Yes Pain Manageable: Yes Adequeate Hydration: Yes Anesthesia Complications: No
[2021-04-25] MEDS ORDERED: INSULIN DETEMIR 100 UNIT/ML SQ SCH (18:00)
[2021-04-25] MEDS: PANTOPRAZOLE 40 MG INJ IV SCH ×2 (21:27)
[2021-04-26] MEDS: SODIUM CHLORIDE 0.9% 1000 ML 1,000 ML IV SCH (04:38)
[2021-04-26] MEDS: LEVOTHYROXINE 25 MCG TAB FEEDTUBE SCH (05:03)
[2021-04-26 08:04] LABS: Hematocrit 30.6 % (30.3-42.9); Hemoglobin 10.7 gm/dl (10.1-14.3); Mean Corpuscular HGB Conc 35 % (30-34); Mean Corpuscular Volume 74 fl (79-97); Platelet Count 259 K/mm3 (140-440); Red Blood Count 4.16 M/mm3 (3.65-5.03); Red Cell Distribution Width 17.6 % (13.2-15.2)
[2021-04-26] MEDS: LISINOPRIL 20 MG TAB FEEDTUBE SCH (09:45)
[2021-04-26] MEDS: carvediloL 25 MG TAB FEEDTUBE SCH ×2 (09:45→23:10)
[2021-04-26] MEDS: PANTOPRAZOLE 40 MG INJ IV SCH (09:45)
[2021-04-26] MEDS: amLODIPine 10 MG TAB FEEDTUBE SCH (09:45)
[2021-04-26] MEDS: FERROUS SULFATE 308 MG (62mg Elemental Iron) / 7 ML ELIXIR FEEDTUBE SCH ×2 (09:46→23:11)
[2021-04-26] MEDS: INSULIN GLARGINE 100 UNITS/ML SUB-Q SCH (23:11)
[2021-04-27] MEDS: SODIUM CHLORIDE 0.9% 1000 ML 1,000 ML IV SCH ×2 (01:45→22:17)
[2021-04-27] MEDS: LEVOTHYROXINE 25 MCG TAB FEEDTUBE SCH (06:38)
[2021-04-27] MEDS: amLODIPine 10 MG TAB FEEDTUBE SCH (10:20)
[2021-04-27] MEDS: LANSOPRAZOLE 30 MG SOLUTAB FEEDTUBE SCH ×3 (10:21→16:26)
[2021-04-27] MEDS: carvediloL 25 MG TAB FEEDTUBE SCH ×2 (10:22→22:08)
[2021-04-27] MEDS: FERROUS SULFATE 308 MG (62mg Elemental Iron) / 7 ML ELIXIR FEEDTUBE SCH ×2 (10:23→22:09)
[2021-04-27] MEDS: LISINOPRIL 20 MG TAB FEEDTUBE SCH (10:24)
--- NOTE | 2021-04-27 11:00 | Progress Note ---
Assessment and Plan A/P -- GI bleed Current Visit: Yes Status: Acute Plan to address problem: GI bleed protocol: repeat CBC in a.m., PPI therapy, GI team consulted. Further care and evaluation as per GI team. S/p EGD Ulcerative esophagitis Continue PPIs -- SIRS (systemic inflammatory response syndrome)/leukocytosis likely reactive, cont IV antibiotic therapy, repeat CBC in a.m. -- Diabetes Sliding-scale insulin, Accu-Chek, hypoglycemia protocol -- DVT prophylaxis SCD to bilateral lower extremities while in bed, hold anticoagulation for now due to GI bleed. -- full code Subjective Date of service: 04/26/21 Principal diagnosis: GI bleed Interval history: Ms. Ochoa is a 70-year-old woman with a history of CVA, atrial fibrillation, hypertension, and an indwelling G-tube. She was sent in by her daughter for an episode of coffee-ground emesis. S/p EGD Findings: 1. Ulcerative esophagitis with linear ulcers, white-based, from 20 to 32 cm from gums. 2. 5 cm hiatal hernia 3. Normal stomach with G-tube balloon in place 4. Normal duodenum and bulb 5. No old or fresh blood noted. Objective - Constitutional Vitals: Vital Signs - 12hr 04/27/21 04/27/21 04/27/21 04:41 09:32 10:18 Temperature 98.8 F 98.6 F Pulse Rate 64 72 Respiratory 16 18 Rate Blood Pressure 141/68 127/61 O2 Sat by Pulse 97 96 93 Oximetry 04/27/21 04/27/21 10:20 10:22 Temperature Pulse Rate Respiratory Rate Blood Pressure 127/61 127/61 O2 Sat by Pulse Oximetry General appearance: Present: no acute distress, well-nourished - EENT Eyes: PERRL, EOM intact ENT: hearing intact, clear oral mucosa Ears: bilateral: normal - Neck Neck: supple, normal ROM - Respiratory Respiratory effort: normal Respiratory: bilateral: CTA - Breasts Breasts: normal - Cardiovascular Heart rate: 78 Rhythm: regular Heart Sounds: Present: S1 & S2. Absent: gallop, rub Extremities: pulses intact, No edema, normal color, Full ROM - Gastrointestinal General gastrointestinal: Present: soft, non-tender, non-distended, normal bowel sounds Rectal Exam: deferred - Genitourinary Female genitourinary: normal - Integumentary Integumentary: clear, warm, dry - Musculoskeletal Musculoskeletal: 1, strength equal bilaterally - Neurologic Neurologic: moves all extremities - Psychiatric Psychiatric: memory intact, appropriate mood/affect, intact judgment & insight - Allied health notes Allied health notes reviewed: nursing, case management - Labs CBC & Chem 7: 04/26/21 07:18 04/25/21 06:17 Labs: Abnormal lab results 04/26/21 Range/Units 21:26 POC Glucose 156 H (70-105) mg/dL
--- NOTE | 2021-04-27 11:40 | Progress Note ---
Assessment and Plan A/P -- GI bleed Current Visit: Yes Status: Acute Plan to address problem: GI bleed protocol: repeat CBC in a.m., PPI therapy, GI team consulted. Further care and evaluation as per GI team. S/p EGD Ulcerative esophagitis Continue PPIs -- SIRS (systemic inflammatory response syndrome)/leukocytosis likely reactive, cont IV antibiotic therapy, repeat CBC in a.m. 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 -- full code Discharge planning For discharge tomorrow Patient's daughter is not ready to take her home today because of the logistics Subjective Date of service: 04/27/21 Principal diagnosis: GI bleed Interval history: Ms. Ochoa is a 70-year-old woman with a history of CVA, atrial fibrillation, hypertension, and an indwelling G-tube. She was sent in by her daughter for an episode of coffee-ground emesis. S/p EGD Findings: 1. Ulcerative esophagitis with linear ulcers, white-based, from 20 to 32 cm from gums. 2. 5 cm hiatal hernia 3. Normal stomach with G-tube balloon in place 4. Normal duodenum and bulb 5. No old or fresh blood noted. 04/27/2021 Patient is ready for discharge At daughter's request patient to be discharged tomorrow Daughter requested that that she has the logistics to accept her tomorrow and not today because they moved to [place] recently. Daughter wants to get the patient's room ready by tomorrow Objective - Constitutional Vitals: Vital Signs - 12hr 04/27/21 04/27/21 04/27/21 04:41 09:32 10:18 Temperature 98.8 F 98.6 F Pulse Rate 64 72 Respiratory 16 18 Rate Blood Pressure 141/68 127/61 O2 Sat by Pulse 97 96 93 Oximetry 04/27/21 04/27/21 10:20 10:22 Temperature Pulse Rate Respiratory Rate Blood Pressure 127/61 127/61 O2 Sat by Pulse Oximetry General appearance: Present: no acute distress, well-nourished - EENT Eyes: PERRL, EOM intact ENT: hearing intact, clear oral mucosa Ears: bilateral: normal - Neck Neck: supple, normal ROM - Respiratory Respiratory effort: normal Respiratory: bilateral: CTA - Breasts Breasts: normal - Cardiovascular Heart rate: 78 Rhythm: regular Heart Sounds: Present: S1 & S2. Absent: gallop, rub Extremities: pulses intact, No edema, normal color, Full ROM - Gastrointestinal General gastrointestinal: Present: soft, non-tender, non-distended, normal bowel sounds, other (PEG tube in place) - Genitourinary Female genitourinary: normal - Integumentary Integumentary: clear, warm, dry - Musculoskeletal Musculoskeletal: right sided weakness, other - Neurologic Neurologic: focal deficits (Right-sided hemiplegia), other (Aphasic) - Psychiatric Psychiatric: appropriate mood/affect, intact judgment & insight, memory intact, other (Aphasic) - Labs CBC & Chem 7: 04/26/21 07:18 04/25/21 06:17 Labs: Abnormal lab results 04/26/21 Range/Units 21:26 POC Glucose 156 H (70-105) mg/dL
[2021-04-27] MEDS: MIRTAZAPINE 15 MG TAB FEEDTUBE SCH ×2 (19:22)
[2021-04-27 21:36] VITALS: BP 158/80
[2021-04-27] MEDS: INSULIN GLARGINE 100 UNITS/ML SUB-Q SCH (22:06)
[2021-04-28] MEDS: LEVOTHYROXINE 25 MCG TAB FEEDTUBE SCH (05:21)
[2021-04-28] MEDS: LANSOPRAZOLE 30 MG SOLUTAB FEEDTUBE SCH (07:30)
[2021-04-28] MEDS: amLODIPine 10 MG TAB FEEDTUBE SCH (09:26)
[2021-04-28] MEDS: carvediloL 25 MG TAB FEEDTUBE SCH (09:26)
[2021-04-28] MEDS: FERROUS SULFATE 308 MG (62mg Elemental Iron) / 7 ML ELIXIR FEEDTUBE SCH (09:26)
[2021-04-28] MEDS: LISINOPRIL 20 MG TAB FEEDTUBE SCH (09:26)
== END 2021-04-28 11:03 | disposition home or self-care (01) | DRG 381 ==
LOC: ED 16:11 → 3A 18:42
PROVIDERS: ADMIT Internal Medicine; ATTEND Internal Medicine
PROC: 0DJ08ZZ Inspection of Upper Intestinal Tract, Via Natural or Artificial Opening Endoscopic (ICD-10-PCS; principal; 2021-04-25)
DX: K22.11 Ulcer of esophagus with bleeding (principal); R65.10 Systemic inflammatory response syndrome (SIRS) of non-infectious origin without acute organ dysfunction; I50.9 Heart failure, unspecified; I11.0 Hypertensive heart disease with heart failure; E11.9 Type 2 diabetes mellitus without complications; M19.90 Unspecified osteoarthritis, unspecified site; I48.91 Unspecified atrial fibrillation; E78.5 Hyperlipidemia, unspecified; K21.9 Gastro-esophageal reflux disease without esophagitis; K44.9 Diaphragmatic hernia without obstruction or gangrene; Z90.49 Acquired absence of other specified parts of digestive tract; Z87.891 Personal history of nicotine dependence; Z83.3 Family history of diabetes mellitus; Z86.73 Personal history of transient ischemic attack (TIA), and cerebral infarction without residual deficits; Z88.8 Allergy status to other drugs, medicaments and biological substances; I25.2 Old myocardial infarction; Z82.49 Family history of ischemic heart disease and other diseases of the circulatory system; Z79.4 Long term (current) use of insulin
CPT/HCPCS: 36415; 74177; 80048; 80076; 82962; 85025; 85027; 85610; 85730; 86850; 86900; 86901; 96372; G0378; C9113; J0696; J1170; J1815; J2270; J2405; J2704; J7030; Q9967